=== PATIENT | male | born 1990 | race Caucasian/White ===

== ENCOUNTER 2017-12-21 16:00 | Outpatient (RCR) | payer OTHER, SELFPAY | END 2017-12-31 10:48 | disposition home or self-care (01) | LOC: PT 16:00 | PROVIDERS: Visit Provider Nurse Practitioner Family | DX: M54.5 Low back pain (principal) | CPT/HCPCS: 97012; 97033; 97035; 97110; 97140; 97163; 97164 ==

== ENCOUNTER 2020-02-17 11:31 | Emergency (ER) | payer BC, SELFPAY ==
[2020-02-17 11:41] VITALS: BP 130/94; PULSE 104; RESP 18; TEMP 36.7; O2SAT 97; BMI 23.7
--- NOTE | 2020-02-17 11:51 | HMH.EDUTC ---
[facility] [place] Disposition Clinical Impression: Acute bronchitis Qualifiers: Bronchitis organism: unspecified organism Qualified Code(s): J20.9 - Acute bronchitis, unspecified Disposition: Home, Self-Care Condition on Discharge: Good Instructions: DI for Acute Bronchitis, Preventing the Spread of Coronavirus Discharge Instructions Additional Instructions: Drink plenty of fluids. Take tylenol or ibuprofen for pain or fever. Take the medications as directed. Follow up with your regular doctor. GO TO THE ER FOR ANY WORSENING SYMPTOMS Prescriptions: Brompheniramine/Pseudoephed/Dm [Bromfed Dm Cough Syrup] 5 ml PO Q6HP PRN #240 syrup PRN Reason: Cough Transmission Status: Received by [email or web address] predniSONE [Prednisone 20mg Tab] 20 mg PO BID 4 Days #8 tab Transmission Status: Received by [email or web address] Azithromycin [Z-Terry 250mg Tab*] 250 mg PO UD DOSE PK #6 tab Transmission Status: Received by [email or web address] Referrals: Bev Love [Primary Care Provider] - Forms: Work/School Release Time of Disposition: 12:23 Medical Decision Making - Medical Records Medical records reviewed: No: I reviewed the patient's medical records. - John Inquiry Pt receiving controlled substance: No Vital Signs: 02/17/20 11:41 02/17/20 12:40 Temperature 98.0 F 98.0 F Temperature Source Oral Oral Pulse Rate 104 H Pulse Rate [Radial] 104 H Respiratory Rate 18 18 Blood Pressure 130/94 H Blood Pressure [Right Arm] 130/94 H Blood Pressure Mean [Right Arm] 106 Blood Pressure Source Automatic Cuff Blood Pressure Source [Right Arm] Automatic Cuff Blood Pressure Position Sitting Blood Pressure Position [Right Arm] Sitting 02 Sat by Pulse Oximetry 97 Oxygen Delivery Method Room Air Room Air Orders (Tests/Meds): ORDERS Category Date Time Status Covid-19 Nasal PCR Sendout [facility] Stat Lab 02/17/20 12:00 Received [facility] [place] HPI - General Stated complaint: coughing Time Seen by Provider: 02/17/20 11:51 Mode of Arrival: Ambulatory Source of Information: Patient Limitations: No Limitations Description of Symptoms (Recalled from Triage Doc. by RN): Complaint of a cought for 2-3 weeks with chest and back pain. States it gets better with rest. HEENT Symptoms (Recalled from RN notes): Yes Resp Symptoms (Recalled from RN notes): Yes Skin Symptoms (Recalled from RN notes): No MS Symptoms (Recalled from RN notes): No Functional Status (Recalled from RN notes): wnl - History of Present Illness Provider Complaint: He c/o cough and congestion for the past couple of weeks. His work wants him to be tested for covid. He denies any fever/chills. - Related Data Previous Rx's Medication Instructions Recorded Naproxen [Naproxen 500mg tab] 500 mg PO BID PRN #24 tab 10/08/17 Azithromycin [Z-Terry 250mg Tab*] 250 mg PO UD DOSE PK #6 tab 02/17/20 Brompheniramine/Pseudoephed/Dm 5 ml PO Q6HP PRN #240 syrup 02/17/20 [Bromfed Dm Cough Syrup] predniSONE [Prednisone 20mg 20 mg PO BID 4 Days #8 tab 02/17/20 Tab] Allergies Allergy/AdvReac Type Severity Reaction Status Date / Time No Known Allergies Allergy Verified 10/08/17 11:03 - Worker's Comp Is this a Worker's Comp case?: No [facility] History - Hepatitis A Screen Drug use history?: No High risk sexual behaviors?: No History of sexually transmitted infection?: No Currently employed?: No Childcare worker?: No Do you have indoor plumbing?: Yes Do you have electricity?: Yes Attestation statement:: This patient has been screened for Hepatitis A risk factors. 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
--- NOTE | 2020-02-17 11:54 | XR_ITS ---
PROCEDURE: XR CHEST 2V CLINICAL HISTORY: cough COMPARISON: No exams were available for comparison FINDINGS: The cardiomediastinal silhouette and pulmonary vascularity are within normal limits. The lungs are clear without infiltrates, suspicious nodules, or pleural effusions. No acute bony abnormalities. IMPRESSION: No acute findings. Dictated by: Baldemar Ortiz MD 02/17/2020 15:42 Baldemar Ortiz MD in OV 02/17/2020 15:42
[2020-02-17 12:40] VITALS: BP 130/94; PULSE 104; RESP 18; TEMP 36.7; O2SAT 97
[2020-02-18 18:10] LABS: Covid-19 Nasal PCR Sendout Lex NOT DETECTED
== END 2020-02-17 12:42 | disposition home or self-care (01) ==
PROVIDERS: Emergency Provider Nurse Practitioner Family; PCP Nurse Practitioner Family
DX: J20.9 Acute bronchitis, unspecified (principal); Z20.828 Contact with and (suspected) exposure to other viral communicable diseases; Z87.891 Personal history of nicotine dependence
CPT/HCPCS: 71046; 99202; U0004

== ENCOUNTER 2020-10-29 10:23 | Emergency (ER) | payer BC, SELFPAY ==
[2020-10-29 10:29] VITALS: BP 139/86; PULSE 83; RESP 14; TEMP 36.6; O2SAT 98; BMI 25.0
--- NOTE | 2020-10-29 10:50 | HMH.EDUTC ---
[facility] [place] Impression: Headache Qualifiers: Headache type: unspecified Headache chronicity pattern: unspecified pattern Intractability: not intractable Qualified Code(s): R51.9 - Headache, unspecified Disposition: Home, Self-Care Condition on Discharge: Good Instructions: Migraine -- Adult, DI for Migraine Additional Instructions: Go home and lay down and try to avoid any migraine triggers If you continue to have Migraines follow up with your Family Doctor for discussion of migraine medications Return if needed Straight to ER if any life threatening symptoms Referrals: Provider,Referral, MD [Primary Care Provider] - As needed Forms: Work/School Release Time of Disposition: 11:19 Medical Decision Making - John Inquiry Pt receiving controlled substance: No John was queried for this patient: No Vital Signs: 10/29/20 10:29 10/29/20 11:21 Temperature 97.9 F 98 F Temperature Source Oral Pulse Rate 80 Pulse Rate [Right] 83 Respiratory Rate 14 14 Blood Pressure 130/82 Blood Pressure [Right Arm] 139/86 Blood Pressure Mean [Right Arm] 103 Blood Pressure Source [Right Arm] Automatic Cuff Blood Pressure Position [Right Arm] Sitting 02 Sat by Pulse Oximetry 98 Oxygen Delivery Method Room Air Orders (Tests/Meds): ED MEDICATIONS Discontinued Medications Generic Name Dose Route Start Last Admin Trade Name Freq PRN Reason Stop Dose Admin Ubrogepant 50 mg 10/29/20 10:55 10/29/20 10:58 Ubrogepant 50mg Tablet PO 10/29/20 10:56 50 mg ONCE ONE Administration Medical Decision Narrative: Patient reports that he took 2 excedrin migraine this morning around 6am Discussed medication with pharmacy and due to amount of asprin in excedrin did not recommend Torodol injection and pharmacy recommended 50mg Ubrelvy PO discussed with patient and patient agreed Patient state that medication is helping and now headache almost gone Discussed injection of steriods to help prevent recurrence and patient declined [facility] [place] - General Stated complaint: headache for 4 days Time Seen by Provider: 10/29/20 10:35 Mode of Arrival: Ambulatory Source of Information: Patient Limitations: No Limitations Description of Symptoms (Recalled from Triage Doc. by RN): pt c/o a migraine ongoing for four days. pt states he has a hx of migraines. he has had some n/v. when it came on he saw black spots which is normal for his migraines. pain is 5/10 but gets up to a seven. HEENT Symptoms (Recalled from RN notes): Yes (migraine) Resp Symptoms (Recalled from RN notes): No Skin Symptoms (Recalled from RN notes): No MS Symptoms (Recalled from RN notes): No Functional Status (Recalled from RN notes): na - History of Present Illness Provider Complaint: Patient states that he has a history of migraine headaches State that he started having Migraine about 4 days ago and has tried taking excedrin migraine which will knock the pain down but not get rid of it and then it comes back States that this migraine is like others he has had in the past States that he tried to go to work today but the migraine returned so he came in to get treated State that took 2 excedrin migraine around 6am this morning - Related Data Previous Rx's Medication Instructions Recorded Naproxen [Naproxen 500mg tab] 500 mg PO BID PRN #24 tab 10/08/17 Azithromycin [Z-Terry 250mg Tab*] 250 mg PO UD DOSE PK #6 tab 02/17/20 Brompheniramine/Pseudoephed/Dm 5 ml PO Q6HP PRN #240 syrup 02/17/20 [Bromfed Dm Cough Syrup] predniSONE [Prednisone 20mg 20 mg PO BID 4 Days #8 tab 02/17/20 Tab] Allergies Allergy/AdvReac Type Severity Reaction Status Date / Time No Known Allergies Allergy Verified 10/29/20 10:29 - Worker's Comp Is this a Worker's Comp case?: No [facility] History - Hepatitis A Screen Drug use history?: No High risk sexual behaviors?: No History of sexually transmitted infection?: No Currently employed?: No Childcare
[2020-10-29 11:21] VITALS: BP 130/82; PULSE 80; RESP 14; TEMP 36.6
== END 2020-10-29 11:24 | disposition home or self-care (01) ==
PROVIDERS: Emergency Provider Nurse Practitioner
DX: G43.109 Migraine with aura, not intractable, without status migrainosus (principal); F17.210 Nicotine dependence, cigarettes, uncomplicated
CPT/HCPCS: 99202; G0463

== ENCOUNTER 2020-10-30 13:58 | Emergency (ER) | payer BC, SELFPAY ==
[2020-10-30 14:00] VITALS: BP 147/87; PULSE 78; RESP 19; TEMP 37; O2SAT 98; BMI 25.0
--- NOTE | 2020-10-30 14:43 | HMH.EDUTC ---
[facility] [place] Disposition Clinical Impression: Headache Qualifiers: Headache type: unspecified Headache chronicity pattern: unspecified pattern Intractability: not intractable Qualified Code(s): R51.9 - Headache, unspecified Disposition: Home, Self-Care Condition on Discharge: Good Instructions: Migraine -- Adult, DI for Migraine Additional Instructions: Follow up with your Family Doctor for evaluation due to Migraines to discuss further treatment Straight to ER for worsening of Migraine or changes in vision or worse headache of your life Call and make Eye exam appointment Return if needed Referrals: Bev Love [Primary Care Provider] - As needed Forms: Work/School Release Time of Disposition: 15:23 Medical Decision Making - John Inquiry Pt receiving controlled substance: No John was queried for this patient: No Vital Signs: 10/30/20 14:00 10/30/20 15:05 Temperature 98.6 F 98.6 F Temperature Source Oral Pulse Rate 78 Pulse Rate [Left Brachial] 78 Respiratory Rate 19 19 Blood Pressure 147/87 H Blood Pressure [Left Arm] 147/87 H Blood Pressure Mean [Left Arm] 107 Blood Pressure Source [Left Arm] Automatic Cuff Blood Pressure Position [Left Arm] Sitting 02 Sat by Pulse Oximetry 98 Oxygen Delivery Method Room Air Orders (Tests/Meds): ED MEDICATIONS Discontinued Medications Generic Name Dose Route Start Last Admin Trade Name Freq PRN Reason Stop Dose Admin Ketorolac Tromethamine 60 mg 10/30/20 14:55 10/30/20 15:00 Ketorolac 60mg/2ml Vial IM 10/30/20 14:56 60 mg ONCE ONE Administration Methylprednisolone Sodium Succinate 125 mg 10/30/20 14:55 10/30/20 15:00 Methylprednisolone Sod Succ 125mg Vial IM 10/30/20 14:56 125 mg ONCE ONE Administration Medical Decision Narrative: Discussed with patient and recommended transfer to the ED for further work up and evaluation and Head CT for further evaluation and R/O other possible migraine causes and patient declined State that he just wants treatment and will follow up with PCP tomorrow if headache returns Also discussed with patient that he needed to have eye exam since he has not had one in many years that this can lead to headache Patient is driving and medications discussed with pharmacy and agree will given injection of Torodol and SoluMedrol and have patient follow up immediately in ED or with PCP if headache returns Patient reports that he has not taken anything since he received medication in [facility] yesterday Patient states that medication helped and headache now much better and almost gone recommended follow up with PCP tomorrow for further evaluation and examination [facility] [place] HPI - General Stated complaint: migraine Time Seen by Provider: 10/30/20 14:43 Mode of Arrival: Ambulatory Source of Information: Patient Limitations: No Limitations Description of Symptoms (Recalled from Triage Doc. by RN): PATIENT C/O MIGRAINE SINCE 1100 TODAY. HE WAS SEEN IN [facility] YESTERDAY FOR A MIGRAINE AND WAS BETTER, BUT IT RETURNED TODAY HEENT Symptoms (Recalled from RN notes): Yes Resp Symptoms (Recalled from RN notes): No Skin Symptoms (Recalled from RN notes): No MS Symptoms (Recalled from RN notes): No Functional Status (Recalled from RN notes): WNL - History of Present Illness Provider Complaint: Patient states that he has a history of migraine headaches. Patient states that he has been having migraine on and off for almost a week States that he was seen in [facility] yesterday and got some medication and it knocked the migraine and he was fine all yesterday evening State that this morning it was a little achy but around noon felt the migraine coming back on the left side of his head State that it is not the worse migraine of his life but came back in to get treated again before it got too bad and made him sick - Related Data Allergies Allergy/AdvReac Type Severity Reaction Status Date / Time No Known Allergies Allergy Verified 10/29/20 10:29
[2020-10-30 15:05] VITALS: BP 147/87; PULSE 78; RESP 19; TEMP 37; O2SAT 98
== END 2020-10-30 15:31 | disposition home or self-care (01) ==
PROVIDERS: Emergency Provider Nurse Practitioner; PCP Nurse Practitioner Family
DX: G43.909 Migraine, unspecified, not intractable, without status migrainosus (principal)
CPT/HCPCS: 96372; 99202; G0463

== ENCOUNTER 2020-12-08 20:24 | Emergency (ER) | payer BC, SELFPAY ==
[2020-12-08 20:32] VITALS: BP 151/109; PULSE 98; RESP 18; TEMP 37.3; O2SAT 100; BMI 23.1
--- NOTE | 2020-12-08 21:10 | HMH.EDDENT ---
ED Disposition Clinical Impression: Infected dental caries Disposition: Home, Self-Care Condition on Discharge: Good Instructions: DI for Dental Pain Additional Instructions: see pcp and dentist for follo wup Prescriptions: clindamycin HCL [Clindamycin HCl] 300 mg PO TID #30 cap Prescription Printed Referrals: Riana Cook APRN [Primary Care Provider] - - Critical Care Critical Care Time: No Attestation: On 12/08/20, the high probability of a clinically significant, sudden or life threatening deterioration of the following system(s) required my full and direct attention, intervention and personal management. The time I documented below is in addition to time spent performing reported procedures but includes the following listed in this critical care notation. Medical Decision Making - Medical Records Medical records reviewed: Yes: I reviewed the patient's medical records. - John Inquiry Pt receiving controlled substance: No Vital Signs: 12/08/20 20:32 Temperature 99.1 F Temperature Source Oral Pulse Rate [Right Brachial] 98 H Respiratory Rate 18 Blood Pressure [Right Arm] 151/109 H Blood Pressure Mean [Right Arm] 123 Blood Pressure Source [Right Arm] Automatic Cuff Blood Pressure Position [Right Arm] Sitting 02 Sat by Pulse Oximetry 100 Oxygen Delivery Method Room Air Orders (Tests/Meds): ED MEDICATIONS Generic Name Dose Route Start Last Admin Trade Name Freq PRN Reason Stop Dose Admin Ceftriaxone Sodium 1 gm/ 50 mls @ 100 mls/hr 12/08/20 20:45 12/08/20 20:44 Sodium Chloride IV 12/22/20 20:44 100 mls/hr Q24H CYNDI Administration Protocol Sodium Chloride 8 ml 12/08/20 20:41 Sodium Chloride 0.9% 10ml Vial IV 01/07/21 20:40 NEEDED PRN dilute pepcid Discontinued Medications Generic Name Dose Route Start Last Admin Trade Name Freq PRN Reason Stop Dose Admin Famotidine 20 mg 12/08/20 20:41 Famotidine 20mg/2ml Vial IV 12/08/20 20:42 ONCE ONE Ketorolac Tromethamine 30 mg 12/08/20 20:43 12/08/20 20:44 Ketorolac 30mg/Ml Vial IV 12/08/20 20:44 30 mg ONCE ONE Administration Methylprednisolone Sodium Succinate 125 mg 12/08/20 20:41 12/08/20 20:43 Methylprednisolone Sod Succ 125mg Vial IV 12/08/20 20:42 125 mg ONCE ONE Administration ORDERS Category Date Time Status Basic Metabolic Panel Stat Lab 12/08/20 20:41 Ordered Complete Blood Count Auto Diff Stat Lab 12/08/20 20:41 Ordered Medical Decision Narrative: f/u with dentist and pcp Dental HPI - General Chief complaint: Dental/Oral Stated complaint: dental pain Time Seen by Provider: 12/08/20 20:40 Mode of Arrival: Family Vehicle Source of Information: Patient, Medical Record Limitations: No Limitations Description of Symptoms (Recalled from ER Triage Doc. by RN): PT WITH PRESSURE UNDER RIGHT EYE THAT BECAME MORE SWOLLEN IN THE LAST HOUR. PT STATES HE HAS A TOOTH ABSCESS ON LEFT UPPER JAW. - History of Present Illness HPI Narrative: pt with poor dental health and swollen lt face - pt with no fever - MD Complaint: tooth pain Onset (ago): hour(s) Severity: moderate Context: history of dental caries, poor dental care Associated symptoms: gum swelling Treatment prior to arrival: none - Related Data Previous Rx's Medication Instructions Recorded clindamycin HCL [Clindamycin HCl] 300 mg PO TID #30 cap 12/08/20 Allergies Allergy/AdvReac Type Severity Reaction Status Date / Time No Known Allergies Allergy Verified 10/29/20 10:29 [facility] History - Hepatitis A Screen Drug use history?: No High risk sexual behaviors?: No History of sexually transmitted infection?: No Currently employed?: No Childcare worker?: No Do you have indoor plumbing?: Yes Do you have electricity?: Yes Attestation statement:: This patient has been screened for Hepatitis A risk factors. I have reviewed the patient's past medical history: Yes Medi
[2020-12-08 21:20] LABS: Basophils # 0.1 K/mm3 (0-0.2); Basophils % 0.5 % (0.1-2.0); Eosinophils # 0.2 K/mm3 (0.0-0.4); Eosinophils % 1.1 % (0.1-12.0); Hematocrit 42.3 % (42.0-52.0); Hemoglobin 14.7 g/dL (14.1-18.0); Lymphocytes # 1.8 K/mm3 (0.7-4.5); Lymphocytes % 10.9 % (10-50); Mean Corpuscular HGB Conc 34.8 g/dL (31.8-35.4); Mean Corpuscular Hemoglobin 30.4 pg (27.0-31.2); Mean Corpuscular Volume 87.3 fl (80-94); Mean Platelet Volume 7.9 fl (7.4-10.4); Monocytes # 0.8 K/mm3 (0.1-1.0); Monocytes % 4.8 % (1.7-9.3); Neutrophils # 13.7 K/mm3 (1.8-7.8); Neutrophils % 82.7 % (37.0-80.0); Platelet Count 261 K/mm3 (142-424); Red Blood Count 4.84 M/mm3 (4.60-6.20); Red Cell Distribution Width 13.1 % (11.5-17.5); White Blood Count 16.6 K/mm3 (4.8-10.8)
[2020-12-08 21:21] LABS: MANUAL DIFFERENTIAL MANUAL DIFFERENTIAL (MANUAL DIFF)
[2020-12-08 21:28] LABS: Anion Gap 10.8 mEq/L (5-15); Blood Urea Nitrogen 8 mg/dl (9-20); Calcium 9.1 mg/dl (8.4-10.2); Carbon Dioxide 28 mmol/L (22.0-30.0); Chloride 102 mmol/L (98-107); Creatinine Clearance Estimated 111 mL/min (50-200); Estimated Glomerular Filt Rate 78 ml/min (>60); GFR (African American) 94 ML/MIN (>60); Glucose 85 mg/dl (74-100); Potassium 3.8 mmoL/L (3.5-5.1); Sodium 137 mmol/L (136-145)
[2020-12-08 21:41] LABS: Eosinophils % 1 % (0-3); Lymphocytes % 12 % (10-50); Monocytes % 4 % (2-9); Neutrophils % 83 % (42-76); Platelet Estimate Normal; RBC Morphology Normal; Total Cells Counted 100
[2020-12-08 21:53] VITALS: BP 110/61; PULSE 88; RESP 18; TEMP 36.8; O2SAT 99
== END 2020-12-08 22:00 | disposition home or self-care (01) ==
PROVIDERS: Emergency Provider Emergency Medicine; PCP Nurse Practitioner
DX: K04.7 Periapical abscess without sinus (principal); K02.9 Dental caries, unspecified; F17.210 Nicotine dependence, cigarettes, uncomplicated
CPT/HCPCS: 80048; 85007; 85025; 96374; 96375; 99282

== ENCOUNTER 2021-02-04 12:23 | Emergency (ER) | payer BC, SELFPAY ==
[2021-02-04 14:25] VITALS: BP 122/79; PULSE 64; RESP 18; TEMP 36.8; O2SAT 100; BMI 23.1
--- NOTE | 2021-02-04 15:03 | HMH.EDUTC ---
[facility] [place] Clinical Impression: Viral syndrome, Encounter for laboratory testing for COVID-19 virus Disposition: Home, Self-Care Condition on Discharge: Good Instructions: DI for COVID-19 (Suspected or Confirmed ), Preventing the Spread of Coronavirus Discharge Instructions, DI for Viral Syndrome Additional Instructions: *Monitor Temp, Over the counter Motrin or Tylenol as directed/as needed Tylenol every 4 hours and Motrin every 6 hours (as long as your family doctor has told you that you can take it) for fever or pain. and straight to ER if unable to lower temp less than 101.0 after medication given *Warm salt water gargles may help to soothe the throat *Throat Lozenges *Warm fluids like tea with honey may help to soothe the throat *Sleep elevated *Humidifier/Vaporizer Follow up IMMEDIATELY for new or worsening symptoms or no Noticeable improvement over the next 48-72 hours. 911 for difficulty breathing or swallowing You were tested for today for COVID19 your test result should be back in the next 24-48 hours, you was given handout on how to check for your results on [facility] if you have issues or no internet access you may call the [facility] You was given a handout with instructions for Self Quarantine and Self isolation for while you wait on test results and what to do if they are positive If you are positive the Health Dept will be contacting you also Make sure to take your Vitamins Vit. C Vit D and Zinc if you can take them Referrals: Riana Cook APRN [Primary Care Provider] - As needed Forms: Work/School Release Time of Disposition: 15:07 Medical Decision Making - John Inquiry Pt receiving controlled substance: No John was queried for this patient: No Vital Signs: 02/04/21 14:25 Temperature 98.3 F Temperature Source Oral Pulse Rate [Right Brachial] 64 Respiratory Rate 18 Blood Pressure [Right Arm] 122/79 Blood Pressure Mean [Right Arm] 93 Blood Pressure Source [Right Arm] Automatic Cuff Blood Pressure Position [Right Arm] Sitting 02 Sat by Pulse Oximetry 100 Oxygen Delivery Method Room Air Orders (Tests/Meds): ORDERS Category Date Time Status Covid-19 Nasal PCR ([facility]) Routine Lab 02/04/21 14:54 Ordered [facility] [place] - General Stated complaint: covid symptoms Time Seen by Provider: 02/04/21 15:03 Mode of Arrival: Ambulatory Source of Information: Patient Limitations: No Limitations Description of Symptoms (Recalled from Triage Doc. by RN): PATIENT C/O RUNNY NOSE, RIGHT-SIDE RIB PAIN, WEAKNESS, AND CHILLS. RECENTLY EXPOSED TO COVID HEENT Symptoms (Recalled from RN notes): Yes Resp Symptoms (Recalled from RN notes): Yes Skin Symptoms (Recalled from RN notes): No MS Symptoms (Recalled from RN notes): No Functional Status (Recalled from RN notes): WNL - History of Present Illness Provider Complaint: Patient states that several family members and several coworkers have had COVID states that several days ago he started with nasal congestion, cough, pain in his right ribs when he would cough, and body aches and chills States now symptoms are better and almost gone but started having similar symptoms and he wanted to get tested for COVID due to she is - Related Data Previous Rx's Medication Instructions Recorded clindamycin HCL [Clindamycin HCl] 300 mg PO TID #30 cap 12/08/20 Allergies Allergy/AdvReac Type Severity Reaction Status Date / Time No Known Allergies Allergy Verified 10/29/20 10:29 - Worker's Comp Is this a Worker's Comp case?: No [facility] History - Hepatitis A Screen Drug use history?: No High risk sexual behaviors?: No History of sexually transmitted infection?: No Currently employed?: No Childcare worker?: No Do you have indoor plumbing?: Yes Do you have electricity?: Yes Attestation statement:: This patient has been screened for Hepatitis A risk factors. I have reviewed the patient's past medical history: Yes Medical H
[2021-02-04 15:10] VITALS: BP 122/79; PULSE 64; RESP 18; TEMP 36.8; O2SAT 100
== END 2021-02-04 15:19 | disposition home or self-care (01) ==
PROVIDERS: Emergency Provider Nurse Practitioner; PCP Nurse Practitioner
DX: U07.1 COVID-19 (principal); B34.9 Viral infection, unspecified; F17.210 Nicotine dependence, cigarettes, uncomplicated
CPT/HCPCS: 99202; C9803; G0463; U0003; U0005

== ENCOUNTER 2022-06-28 10:55 | Emergency (ER) | payer OTHER, SELFPAY ==
[2022-06-28 11:15] VITALS: BP 118/89; PULSE 110; RESP 18; TEMP 37.6; O2SAT 98; BMI 23.1
[2022-06-28 11:30] LABS: UTC Influenza A Antigen Negative (Negative); UTC Influenza B Antigen Negative (Negative)
--- NOTE | 2022-06-28 11:37 | EXP.UTC ---
Discharge Plan Disposition Patient Disposition: Home, Self-Care Condition: Good Referrals Follow up/Referrals: Provider,Referral, MD [Primary Care Provider] - See instructions Activity Restrictions/Add. Instructions Additional Instructions/Restrictions: call later today for covid results No sign of a bacterial infection. Likely viral. Viruses can take 7-14 days to run their course. Nasal saline and bulb syringe or nose Kia to remove nasal drainage to help with nasal congestion. Hard to eat, drink, sleep with nasal congestion so important to keep this cleaned out. Monitor temp. Tylenol or Motrin as needed for pain or fever Encourage fluids, water, Gatorade, Powerade, Pedialyte if infant/toddler/child Warm salt water gargles Warm fluids Sore throat lozenges Sleep elevated Humidifier/vaporizer Follow-up immediately for new or worsening symptoms or no noticeable improvement over the next 48-72 hours. Clinical Impressions Clinical Impression: Upper respiratory infection Instructions Patient Instructions: DI for Viral Upper Respiratory Infection -- Adult [facility]charge [facility] [place] HPI General Stated complaint: chills, body aches, fever Mode of Arrival: Ambulatory Source of Information: Patient Limitations: No Limitations Time Seen by Provider: 06/28/22 11:41 Description of Symptoms (Recalled from Triage Doc. by RN): PATIENT C/O BODY ACHES, FEVER, AND COUGH X 4 DAYS HEENT Symptoms (Recalled from RN notes): No Resp Symptoms (Recalled from RN notes): Yes Skin Symptoms (Recalled from RN notes): No MS Symptoms (Recalled from RN notes): No Functional Status (Recalled from RN notes): WNL History of Present Illness Provider Complaint: 32 yr old male presents for fever, body aches and cough for 4 days Related Data Allergies Allergy/AdvReac Type Severity Reaction Status Date / Time No Known Allergies Allergy Verified 10/29/20 10:29 Worker's Comp Is this a Worker's Comp case?: No [facility] Disclaimer: The information contained in this section may have been updated after the patient was seen, as this information can be updated by other users. 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) Smoking Status: Current every day smoker tobacco type: cigarettes packs per day: 14 and smokeless tobacco second hand exposure: Yes alcohol intake: never current occupational status: other Travel in the last 8 weeks: None ROS Obtained: Yes All systems reviewed & no additional complaints except as documented Constitutional Constitutional: Reports system reviewed and no additional complaints, except as documented, Reports as per HPI, Reports body ache, Reports chills and Reports fever(s) Eyes Eyes: Reports system reviewed and no additional complaints, except as documented ENT Ears, Nose, Mouth, and Throat: Reports system reviewed and no additional complaints, except as documented Cardiovascular Cardiovascular: Reports system reviewed and no additional complaints, except as documented Respiratory Respiratory: Reports system reviewed and no additional complaints, except as documented and Reports cough Gastrointestinal Gastrointestingal: Reports system reviewed and no additional complaints, except as documented Musculoskeletal Musculoskeletal: Reports system reviewed and no additional complaints, except as documented Integumentary/Breasts Skin/Breast: Reports system reviewed and no additional complaints, except as documented Neurologic Neurologic: Reports system reviewed and no additional complaints, except as documented Allergic/Immunologic Allergic/Immunologic: Reports system reviewed and no additional complaints, except as documented Physical Exam General General appearance: alert and in no apparent distress Head Head exam: atraumatic, normocephalic and nor
[2022-06-28 11:50] VITALS: BP 118/89; PULSE 110; RESP 24; TEMP 37.1; O2SAT 100
== END 2022-06-28 12:00 | disposition home or self-care (01) ==
PROVIDERS: Emergency Provider Nurse Practitioner Family
DX: U07.1 COVID-19 (principal); R50.9 Fever, unspecified; R52 Pain, unspecified; R05.9 Cough, unspecified
CPT/HCPCS: 87804; 99212; C9803; G0463; U0003; U0005

== ENCOUNTER 2023-01-12 10:17 | Emergency (ER) | payer OTHER, SELFPAY ==
[2023-01-12 10:17] VITALS: BP 127/100; PULSE 85; RESP 18; TEMP 37.1; O2SAT 97; BMI 23.1
--- NOTE | 2023-01-12 10:31 | EXP.UTC ---
Discharge Plan Disposition Patient Disposition: Home, Self-Care Condition: Good Prescriptions Prescriptions: New ondansetron 4 mg Tablet,Disintegrating 4 mg PO Q8H PRN (Reason: Nausea) Qty: 12 0RF Referrals Follow up/Referrals: Provider,Referral, MD [Primary Care Provider] - See instructions Activity Restrictions/Add. Instructions Additional Instructions/Restrictions: Drink plenty of fluids. Take tylenol or ibuprofen for pain or fever. Take the medications as directed. Follow up with your regular doctor. GO TO THE ER FOR ANY WORSENING SYMPTOMS Clinical Impressions Clinical Impression: Gastroenteritis Stand Alone Forms Stand Alone Forms: Work/School Release Instructions Patient Instructions: Viral Gastroenteritis, DI for Viral Gastroenteritis -- Adult, Ondansetron Discharge ED Provider: Fei Stevens [facility] General Stated complaint: vomiting Time Seen by Provider: 01/12/23 10:31 History of Present Illness Provider Complaint: He states that he has had n/v/d since around 0300 this am. He denies any abdominal pain. He denies any cough and congestion. Related Data Previous Rx's Medication Instructions Recorded ondansetron 4 mg disintegrating 4 mg PO Q8H PRN Nausea #12 tabs 01/12/23 tablet Allergies Allergy/AdvReac Type Severity Reaction Status Date / Time Penicillins Allergy Verified 01/12/23 10:37 [facility] Disclaimer: The information contained in this section may have been updated after the patient was seen, as this information can be updated by other users. 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) Smoking Status: Current every day smoker tobacco type: cigarettes packs per day: 14 and smokeless tobacco second hand exposure: Yes alcohol intake: never current occupational status: other Travel in the last 8 weeks: None ROS Obtained: Yes All systems reviewed & no additional complaints except as documented Constitutional Constitutional: Denies chills, Denies fever(s) and Reports poor appetite ENT Ears, Nose, Mouth, and Throat: Denies dizziness and Denies sore throat Cardiovascular Cardiovascular: Denies dyspnea Respiratory Respiratory: Denies chest congestion, Denies cough and Denies dyspnea Gastrointestinal Gastrointestingal: Reports as per HPI; Denies abdominal pain Musculoskeletal Musculoskeletal: Denies arthralgias Integumentary/Breasts Skin/Breast: Denies rash Neurologic Neurologic: Denies dizziness Physical Exam General General appearance: alert and in no apparent distress Head Head exam: atraumatic and normocephalic Eye Eye exam: Present normal appearance, PERRL and EOMI ENT ENT exam: Present normal exam, normal oropharynx, mucous membranes moist, TM's normal bilaterally and normal external ear exam Neck Neck exam: Present normal inspection, full ROM and trachea midline; Absent tenderness, meningismus or lymphadenopathy Chest Chest inspection: Present normal inspection and symmetric chest wall rise; Absent tenderness, rash or abscess Respiratory Respiratory exam: Present normal lung sounds bilaterally; Absent respiratory distress, wheezes or stridor Cardiovascular Cardiovascular exam: Present regular rate and normal rhythm; Absent irregular rhythm, systolic murmur, diastolic murmur or JVD Abdominal Exam Abdominal exam: Present soft and hyperactive bowel sounds; Absent distention, tenderness, guarding, rebound, rigidity, psoas sign, obturator sign, heel tap sign, Gonzalez's sign, Rovsing's sign or tenderness at McBurney's Point Extremities Exam Extremities exam: Present normal inspection and full ROM; Absent tenderness Back Exam Back exam: Present normal inspection and full ROM; Absent tenderness, CVA tenderness (R) or CVA tenderness (L) Neurological Exam Neurological exam: Present alert, oriented X3 and
[2023-01-12 10:51] VITALS: BP 127/100; PULSE 85; RESP 18; TEMP 37.1; O2SAT 97
== END 2023-01-12 10:51 | disposition home or self-care (01) ==
PROVIDERS: Emergency Provider Nurse Practitioner Family
DX: K52.9 Noninfective gastroenteritis and colitis, unspecified (principal); R11.2 Nausea with vomiting, unspecified; F17.210 Nicotine dependence, cigarettes, uncomplicated
CPT/HCPCS: 96372; 99212; 99214; G0463

== ENCOUNTER 2023-10-14 09:58 | Emergency (ER) | payer OTHER, SELFPAY ==
[2023-10-14 09:58] VITALS: BP 140/99; PULSE 97; RESP 18; TEMP 36.8; O2SAT 95; BMI 22.4
--- NOTE | 2023-10-14 10:20 | ED_ITS ---
Discharge Plan Disposition Patient Disposition: Home, Self-Care Condition: Good Prescriptions Prescriptions: New ondansetron 4 mg Tablet,Disintegrating 4 mg PO Q8H PRN (Reason: Nausea) Qty: 12 0RF Referrals Follow up/Referrals: Provider,Referral, MD [Primary Care Provider] - See instructions Activity Restrictions/Add. Instructions Additional Instructions/Restrictions: Drink plenty of fluids. Take tylenol or ibuprofen for pain or fever. Take the medications as directed. Follow up with your regular doctor. GO TO THE ER FOR ANY WORSENING SYMPTOMS Clinical Impressions Clinical Impression: Gastroenteritis Stand Alone Forms Stand Alone Forms: Work/School Release Instructions Patient Instructions: Viral Gastroenteritis, DI for Viral Gastroenteritis -- Adult, Ondansetron Discharge ED Provider: Fei Stevens [facility] [place] General Stated complaint: vomitting, diarrhea Time Seen by Provider: 10/14/23 10:20 History of Present Illness Provider Complaint: He states that he has had nausea/vomiting/diarrhea since yesterday. He had to leave work because of his symptoms. He denies abdominal pain. Related Data Previous Rx's Medication Instructions Recorded ondansetron 4 mg disintegrating 4 mg PO Q8H PRN Nausea #12 tabs 10/14/23 tablet Allergies Allergy/AdvReac Type Severity Reaction Status Date / Time Penicillins Allergy Verified 10/14/23 11:00 [facility] Disclaimer: The information contained in this section may have been updated after the patient was seen, as this information can be updated by other users. 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 Social History Smoking Status: Current every day smoker tobacco type: cigarettes packs per day: 14 and smokeless tobacco second hand exposure: Yes alcohol intake: never current occupational status: other Travel in the last 8 weeks: None ROS Obtained: Yes All systems reviewed & no additional complaints except as documented Constitutional Constitutional: Denies chills, Denies fever(s) and Reports poor appetite ENT Ears, Nose, Mouth, and Throat: Denies dizziness and Denies sore throat Cardiovascular Cardiovascular: Denies dyspnea Respiratory Respiratory: Denies chest congestion, Denies cough and Denies dyspnea Gastrointestinal Gastrointestingal: Reports as per HPI, cramping, diarrhea, nausea and vomiting; Denies abdominal pain Musculoskeletal Musculoskeletal: Denies arthralgias Integumentary/Breasts Skin/Breast: Denies rash Neurologic Neurologic: Denies dizziness Physical Exam General General appearance: alert and in no apparent distress Head Head exam: atraumatic and normocephalic Eye Eye exam: Present normal appearance, PERRL and EOMI ENT ENT exam: Present normal exam, normal oropharynx, mucous membranes moist, TM's normal bilaterally and normal external ear exam Neck Neck exam: Present normal inspection, full ROM and trachea midline; Absent tenderness, meningismus or lymphadenopathy Chest Chest inspection: Present normal inspection and symmetric chest wall rise; Absent tenderness, rash or abscess Respiratory Respiratory exam: Present normal lung sounds bilaterally; Absent respiratory distress, wheezes or stridor Cardiovascular Cardiovascular exam: Present regular rate and normal rhythm; Absent irregular rhythm, systolic murmur, diastolic murmur or JVD Abdominal Exam Abdominal exam: Present soft and hyperactive bowel sounds; Absent distention, tenderness, guarding, rebound, rigidity, psoas sign, obturator sign, heel tap sign, Gonzalez's sign, Rovsing's sign or tenderness at McBurney's Point Extremities Exam Extremities exam: Present normal inspection and full ROM; Absent tenderness Back Exam Back exam: Present normal inspection and full ROM; Absent tenderness, CVA tenderness (R) or CVA tenderness (L) Neurological Exam Neurological exam: Present alert, oriented X3 and CN II-XII intact Psychiatric Psychiatric exam: Present normal affect and normal mood Skin Skin exam: Present warm, dry, intact and normal color Lymphatic Lymphatic Findings: no adenopathy Medical Decision Making Medical Records Medical records reviewed: No I reviewed the patient's medical records. John Inquiry Pt receiving controlled substance: No
[2023-10-14 11:00] VITALS: BP 140/99; PULSE 97; RESP 18; TEMP 36.8; O2SAT 95
== END 2023-10-14 11:00 | disposition home or self-care (01) ==
PROVIDERS: Emergency Provider Nurse Practitioner Family
DX: K52.9 Noninfective gastroenteritis and colitis, unspecified (principal); R11.2 Nausea with vomiting, unspecified; F17.210 Nicotine dependence, cigarettes, uncomplicated; R63.0 Anorexia
CPT/HCPCS: 99212; 99214; G0463

== ENCOUNTER 2024-07-25 04:35 | Emergency (ER) | payer MEDICAID, SELFPAY ==
[2024-07-25] VITALS (7 sets, daily range): BP systolic 120–145; BP diastolic 86–105; PULSE 63–92; RESP 18–21; TEMP 36.8–36.9; O2SAT 93–99; BMI 22.1
--- NOTE | 2024-07-25 04:39 | HMH.EDGENADL ---
Discharge Plan Disposition Patient Disposition: Home, Self-Care Prescriptions Prescriptions: New clotrimazole 10 mg jia 10 mg mucous membrane QID 7 Days Qty: 28 0RF No Action ondansetron 4 mg Tablet,Disintegrating 4 mg PO Q8H PRN (Reason: Nausea) Qty: 12 0RF Referrals Follow up/Referrals: Provider,Referral, [Primary Care Provider] - See instructions Activity Restrictions/Add. Instructions Additional Instructions/Restrictions: I sent a prescription to [facility] pharmacy for antifungals for treatment of thrush. Please follow-up with your primary care provider. Please return to the emergency department if you develop any new or worsening symptoms or become concerned for your health. Clinical Impressions Clinical Impression: Muscle spasm, Candidiasis of mouth Print Language Print Language: Syriac Discharge ED Provider: Sourav Tyler General Adult HPI General Chief complaint: Alcohol Stated complaint: alchol withdraw Time Seen by Provider: 07/25/24 04:39 History of Present Illness HPI narrative: 34-year-old male with history of alcohol use disorder presents for muscle cramps. He reports that he was previously drinking up to 30 beers per day for the last several months. He quit cold turkey for days ago. He was seen at an outside hospital yesterday and got fluids and felt better. He denies any seizures, hallucinations or other severe symptoms. He did have a couple of days of nausea and vomiting but has been feeling much better. He presents here tonight because he started developing muscle cramps in his hands and his right calf. He is not sure why it is happening. He reports that he has been eating and drinking water at home much better than he used to when he was drinking alcohol. Denies any other symptoms or illness. Related Data Previous Rx's ?Medication ?Instructions ?Recorded ondansetron 4 mg disintegrating 4 mg PO Q8H PRN Nausea #12 tabs 10/14/23 tablet clotrimazole 10 mg jia 10 mg mucous membrane QID 7 days 07/25/24 #28 tabs Allergies Allergy/AdvReac Type Severity Reaction Status Date / Time Penicillins Allergy Verified 10/14/23 11:00 [facility] Disclaimer: The information contained in this section may have been updated after the patient was seen, as this information can be updated by other users. 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 Social History Smoking Status: Unknown if ever smoked second hand exposure: Yes alcohol intake: never current occupational status: other Travel in the last 8 weeks: None Other 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 Have you received the Flu Vaccine for this season: No Have you received the Pneumonia Vaccine: No ROS Obtained: Yes All systems reviewed & no additional complaints except as documented Physical Exam General General appearance: alert and in no apparent distress Head Head exam: atraumatic and normocephalic Eye Eye exam: Present normal appearance, PERRL and EOMI ENT ENT exam: Present normal oropharynx and normal external ear exam Neck Neck exam: Present normal inspection and full ROM Chest Chest inspection: Present normal inspection and symmetric chest wall rise; Absent tenderness Respiratory Respiratory exam: Present normal lung sounds bilaterally; Absent respiratory distress Cardiovascular Cardiovascular exam: Present regular rate and normal rhythm Abdominal Exam Abdominal exam: Present soft; Absent distention, tenderness or guarding Extremities Exam Extremities exam: Present normal inspection; Absent edema or joint swelling Back Exam Back exam: Present normal inspection; Absent tenderness Neurological Exam Neurological exam: Present alert and oriented X3; Absent motor sensory deficit Psychiatric Psychiatric exam: Present normal affect and normal mood Skin Skin exam: Present warm, dry and normal color Lymphatic Lymphatic Findings: no adenopathy Medical Decision Making Medical Records Medical records reviewed: Yes I reviewed the patient's medical records. Screening: Per USPSTF and CDC recommendations, given the prevalence of disease in our region, it is our hospital?s policy to screen for HIV and viral Hepatitis for all patients aged 18 and over and those with ongoing risk factors. John Inquiry Pt receiving controlled substance: No John was queried for this patient: No Vital Signs: 07/25/24 04:35 07/25/24 04:55 07/25/24 04:58 Temperature 98.5 F Temperature Source Oral Pulse Rate 73 Pulse Rate [Right Radial] 81 Respiratory Rate 18 19 Blood Pressure 128/94 H Blood Pressure [Right Arm] 145/105 H Blood Pressure Mean 105 Blood Pressure Mean [Right Arm] 118 Blood Pressure Source Blood Pressure Source [Right Arm] Automatic Cuff Blood Pressure Position Blood Pressure Position [Right Arm] Sitting 02 Sat by Pulse Oximetry 99 98 Oxygen Delivery Method Room Air 07/25/24 04:58 07/25/24 05:00 07/25/24 05:00 Temperature Temperature Source Pulse Rate 63 Pulse Rate [Right Radial] Respiratory Rate 19 19 Blood Pressure 120/87 Blood Pressure [Right Arm] Blood Pressure Mean 97 Blood Pressure Mean [Right Arm] Blood Pressure Source Blood Pressure Source [Right Arm] Blood Pressure Position Blood Pressure Position [Right Arm] 02 Sat by Pulse Oximetry 95 Oxygen Delivery Method 07/25/24 05:15 07/25/24 05:30 07/25/24 06:55 Temperature 98.2 F Temperature Source Oral Pulse Rate 92 H 88 Pulse Rate [Right Radial] Respiratory Rate 21 20 Blood Pressure 123/86 120/88 Blood Pressure [Right Arm] Blood Pressure Mean 94 Blood Pressure Mean [Right Arm] Blood Pressure Source Automatic Cuff Blood Pressure Source [Right Arm] Blood Pressure Position Sitting Blood Pressure Position [Right Arm] 02 Sat by Pulse Oximetry 93 L Oxygen Delivery Method Room Air Lab Data Lab results reviewed: Yes I reviewed the patient's lab results. Lab Results 07/25/24 04:53: WBC 10.0, RBC 3.93 L, Hgb 13.5 L, Hct 37.7 L, MCV 95.9 H, MCH 34.4 H, MCHC 35.8 H, RDW 11.9, Plt Count 156, MPV 11.5 H, Neut % (Auto) 68.9, Lymph % (Auto) 17.2, [place] % (Auto) 9.9 H, Eos % (Auto) 2.6, Baso % (Auto) 1.1, Neut # (Auto) 6.9, Lymph # (Auto) 1.7, [place] # (Auto) 1.0, Eos # (Auto) 0.3, Baso # (Auto) 0.1, PT 9.9 L, INR 0.87 L, Sodium 134 L, Potassium 3.8, Chloride 103, Carbon Dioxide 27, Anion Gap 7.8, BUN 6 L, Creatinine 0.80, Estimated Creat Clear 142, Estimated GFR 109, Est GFR ( Amer) 132, Glucose 109 H, Calcium 9.0, Phosphorus 3.7, Magnesium 1.7, Total Bilirubin 1.0, AST 188 H, ALT 193 H, Alkaline Phosphatase 65, Total Protein 6.5, Albumin 3.9, Globulin 2.6, Albumin/Globulin Ratio 1.5, TSH 2.47, Thyroxine (T4) 7.8, HCV Ab LAY w/Rflx PCR Qn Negative, HIV Ag/Ab Combo Qual Negative 07/25/24 04:53 07/25/24 04:53 Orders (Tests/Meds): ED MEDICATIONS Discontinued Medications Generic Name Dose Route Start Last Admin Trade Name Flores PRN Reason Stop Dose Admin Folic Acid 1 mg 07/25/24 04:48 07/25/24 05:00 Folic Acid 1mg Tablet PO 07/25/24 04:49 1 mg ONCE ONE Administration Multivitamins 10 ml/ Thiamine 1,015 mls @ 150 mls/hr 07/25/24 04:51 07/25/24 04:58 HCl 100 mg/ Magnesium Sulfate IV 07/25/24 11:36 150 mls/hr 2 gm/ Lactated Ringer's .[id number] CYNDI Administration Multivitamins 1 each 07/25/24 04:50 07/25/24 05:22 Multivitamin Tablet PO 07/25/24 04:51 Not Given 1700 ONE Thiamine HCl 100 mg 07/25/24 04:50 07/25/24 05:02 Thiamine 100mg Tablet PO 07/25/24 04:51 100 mg DAILY ONE Administration ORDERS Category Date Time Status Consult Credit Operations 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 W/ RFX Stat Lab 07/25/24 04:53 Completed Magnesium Stat Lab 07/25/24 04:53 Completed Phosphorous Stat Lab 07/25/24 04:53 Completed Prothrombin Time INR Routine Lab 07/25/24 04:53 Completed T4 (Thyroxine) Stat Lab 07/25/24 04:53 Completed TSH [Thyroid Stimulating Hormone] Stat Lab 07/25/24 04:53 Completed Medical Decision Narrative: 34-year-old male with history of alcohol use disorder presents 4 to 5 days after alcohol cessation, complaining of muscle cramps. Denies any hallucinations, significant nausea or vomiting, seizures etc. History was obtained via interactive discussion with patient. On arrival, patient is [afebrile, hemodynamically stable, satting appropriately, alert, oriented x4, GCS 15], moving all extremities spontaneously. Full physical exam performed and significant for no significant physical exam abnormalities. Differential includes but is not limited to muscle spasms, electrolyte derangement, refeeding syndrome, Wernicke syndrome. Patient was given rally pack for symptomatic management and correction of underlying abnormalities. Workup initiated including CBC CMP mag Phos TSH T4 INR. On re-evaluation, patient [remains afebrile, HD stable.] Reports he is feeling significantly better Laboratory workup independently interpreted by me and significant for no significant electrolyte derangement, mildly elevated LFTs, normal renal function. EKG independently interpreted by me and significant for sinus rhythm with sinus arrhythmia, ventricular rate of 70, no ischemic changes.. Given patient history, exam and workup, patient's presentation most likely represents muscle spasms. Underlying etiology is uncertain, patient does not seem dehydrated, nor does he have any significant electrolyte derangements. He is far enough out that he should be safe from a alcohol withdrawal standpoint at this time. No evidence of emergent pathology, patient symptomatically improved. Discharged in stable condition with return precautions. At time of discharge patient also started complaining about dryness in his mouth. On exam patient has some adherent white film on the tongue which appears consistent with thrush. He was discharged with prescription for antifungal coverage. Procedures Risk/Benefits of Procedure(s) Were Explained: Yes Critical Care Critical Care Time Critical Care Time: No
--- NOTE | 2024-07-25 04:48 | ECG_ITS ---
APPROVED REPORT Exam: Resting ECG HR:70 bpm ECG Measurements Heart Rate 70 AXES MD 139 P 62 QRSd 93 QRS 79 QT 386 T 68 QTc 407 Conclusion SINUS RHYTHM WITH SINUS ARRHYTHMIA NORMAL ECG UNCONFIRMED REPORT Electronically signed by : LAURA GUZMAN, 07/25/2024 23:12:29
[2024-07-25] MEDS: MVI, ADULT NO.1 WITH VIT K 10 ML, THIAMINE HCL 100 MG, MAGNESIUM SULFATE 2 GM in LACTAT... 150 ML IV (04:58)
[2024-07-25 05:00] LABS: Basophils # 0.1 K/mm3 (0-0.2); Basophils % 1.1 % (0.1-2.0); Eosinophils # 0.3 K/mm3 (0.0-0.4); Eosinophils % 2.6 % (0.1-12.0); Hematocrit 37.7 % (42.0-52.0); Hemoglobin 13.5 g/dL (14.1-18.0); Lymphocytes # 1.7 K/mm3 (0.7-4.5); Lymphocytes % 17.2 % (10-50); Mean Corpuscular HGB Conc 35.8 g/dL (31.8-35.4); Mean Corpuscular Hemoglobin 34.4 pg (27.0-31.2); Mean Corpuscular Volume 95.9 fl (80-94); Mean Platelet Volume 11.5 fl (7.4-10.4); Monocytes % 9.9 % (1.7-9.3); Neutrophils # 6.9 K/mm3 (1.8-7.8); Neutrophils % 68.9 % (37.0-80.0); Platelet Count 156 K/mm3 (142-424); Red Blood Count 3.93 M/mm3 (4.60-6.20); Red Cell Distribution Width 11.9 % (11.5-17.5)
[2024-07-25] MEDS: FOLIC ACID 1MG TABLET 1 MG PO (05:00)
[2024-07-25] MEDS: THIAMINE 100MG TABLET 100 MG PO (05:02)
[2024-07-25 05:07] LABS: Chloride 103 mmol/L (98-107)
[2024-07-25 05:08] LABS: Albumin Level 3.9 g/dl (3.5-5.0); Potassium 3.8 mmoL/L (3.5-5.1); Sodium 134 mmol/L (136-145)
[2024-07-25 05:10] LABS: Blood Urea Nitrogen 6 mg/dl (9-20); Creatinine Clearance Estimated 142 mL/min (50-200); Estimated Glomerular Filt Rate 109 ml/min (>60); GFR (African American) 132 ML/MIN (>60)
[2024-07-25 05:11] LABS: Alanine Aminotransferase 193 U/L (12-78); Albumin/Globulin Ratio 1.5 (1.1-1.8); Alkaline Phosphatase 65 U/L (38-126); Anion Gap 7.8 mEq/L (5-15); Aspartate Amino Transferase 188 U/L (17-59); Carbon Dioxide 27 mmol/L (22.0-30.0); Globulin 2.6 g/dL (1.3-3.2); Glucose 109 mg/dl (74-100); Magnesium 1.7 mg/dl (1.6-2.3); Phosphorous 3.7 mg/dl (2.5-4.5); Total Protein,Serum 6.5 g/dl (6.3-8.2)
[2024-07-25 05:28] LABS: T4 (Thyroxine) 7.8 ug/dl (5.53-11.0)
[2024-07-25 05:40] LABS: INR 0.87 (0.9-1.1); Prothrombin Time 9.9 seconds (10.1-12.5)
[2024-07-25 05:42] LABS: Thyroid Stimulating Hormone 2.47 uIU/mL (0.465-4.68)
[2024-07-25 09:03] LABS: HIV Combo NEGATIVE (Negative)
[2024-07-25 09:11] LABS: Hepatitis C Ab Qual. W/ RFX NEGATIVE (Negative)
== END 2024-07-25 06:57 | disposition home or self-care (01) ==
PROVIDERS: Emergency Provider Emergency Medicine
DX: R25.2 Cramp and spasm (principal); B37.0 Candidal stomatitis
CPT/HCPCS: 80053; 83735; 84100; 84436; 84443; 85025; 85610; 86803; 87389; 93005; 96361; 96365; 99283; J3411; J7120

== ENCOUNTER 2024-08-15 12:08 | Emergency (ER) | payer MEDICAID, SELFPAY ==
[2024-08-15 12:14] VITALS: BP 146/104; PULSE 92; RESP 18; TEMP 36.6; O2SAT 100; BMI 20.7
[2024-08-15 12:41] LABS: Basophils # 0.1 K/mm3 (0-0.2); Eosinophils # 0.2 K/mm3 (0.0-0.4); Eosinophils % 1.9 % (0.1-12.0); Hematocrit 42.8 % (42.0-52.0); Hemoglobin 15.5 g/dL (14.1-18.0); Lymphocytes # 2.1 K/mm3 (0.7-4.5); Lymphocytes % 24.4 % (10-50); Mean Corpuscular HGB Conc 36.2 g/dL (31.8-35.4); Mean Corpuscular Hemoglobin 33.8 pg (27.0-31.2); Mean Corpuscular Volume 93.4 fl (80-94); Mean Platelet Volume 11.5 fl (7.4-10.4); Monocytes # 0.7 K/mm3 (0.1-1.0); Neutrophils # 5.5 K/mm3 (1.8-7.8); Neutrophils % 64.6 % (37.0-80.0); Platelet Count 114 K/mm3 (142-424); Red Blood Count 4.58 M/mm3 (4.60-6.20); Red Cell Distribution Width 11.8 % (11.5-17.5); White Blood Count 8.6 K/mm3 (4.8-10.8)
--- NOTE | 2024-08-15 12:42 | ECG_ITS ---
APPROVED REPORT Exam: Resting ECG HR:84 bpm ECG Measurements Heart Rate 84 AXES IA 143 P 65 QRSd 92 QRS 81 QT 365 T 85 QTc 405 Conclusion SINUS RHYTHM NORMAL ECG Artifact in V3, no STEMI Electronically signed by : JASBIR GARCIA, 08/16/2024 03:48:28
[2024-08-15] MEDS: ONDANSETRON 4MG/2ML VIAL 4 MG IV (12:51)
[2024-08-15] MEDS: 0.9 % SODIUM CHLORIDE 1000ML 1,000 ML 999 ML IV (12:51)
[2024-08-15] MEDS: FOLIC ACID 1MG TABLET 1 MG PO (12:52)
[2024-08-15] MEDS: THIAMINE HCL 100 MG in 0.9 % SODIUM CHLORIDE 50 ML 204 MG IV (12:52)
[2024-08-15 12:55] LABS: Alanine Aminotransferase 156 U/L (12-78); Albumin Level 4.5 g/dl (3.5-5.0); Albumin/Globulin Ratio 1.6 (1.1-1.8); Alkaline Phosphatase 66 U/L (38-126); Anion Gap 5.6 mEq/L (5-15); Aspartate Amino Transferase 167 U/L (17-59); Bilirubin,Total 0.7 mg/dl (0.2-1.3); Blood Urea Nitrogen 3 mg/dl (9-20); Calcium 9.5 mg/dl (8.4-10.2); Carbon Dioxide 35 mmol/L (22.0-30.0); Chloride 100 mmol/L (98-107); Creatinine Clearance Estimated 133 mL/min (50-200); Estimated Glomerular Filt Rate 109 ml/min (>60); GFR (African American) 132 ML/MIN (>60); Globulin 2.8 g/dL (1.3-3.2); Glucose 117 mg/dl (74-100); Lipase 310 U/L (23-300); Potassium 3.6 mmoL/L (3.5-5.1); Sodium 137 mmol/L (136-145); Total Protein,Serum 7.3 g/dl (6.3-8.2)
[2024-08-15 12:56] LABS: Lactic Acid 1.6 mmol/L (0.7-2.1)
--- NOTE | 2024-08-15 13:01 | ED_ITS ---
<Statement entered by Kiara Lawrence DO - 08/15/24 15:38> I was consulted by the VERONICA, and we discussed the complexity of the problems being addressed. I approved the treatment and management plan for this patient's care in the emergency department, thus performing a substantive portion of the medical decision making. I provided Librium taper to help with alcohol withdrawal symptoms. Patient was given instructions to not drink while taking his medications. He was given instructions to return if he changes mind and wishes to be admitted for detox and further support Kiara Lawrence DO Discharge Plan Disposition Patient Disposition: Left Against Medical Advice Prescriptions Prescriptions: New chlordiazepoxide HCl 25 mg capsule See Rx Instructions .ROUTE .COMPLEX Qty: 15 0RF Rx Instructions: Day 1: 50mg q6h Day 2: 25mg q6h Day 3: 25mg q12h Day 4: 25mg at night (Rx fifteen 25mg tabs) No Action ondansetron 4 mg Tablet,Disintegrating 4 mg PO Q8H PRN (Reason: Nausea) Qty: 12 0RF clotrimazole 10 mg jia 10 mg mucous membrane QID 7 Days Qty: 28 0RF Referrals Follow up/Referrals: Provider,Referral, MD [Primary Care Provider] - See instructions Activity Restrictions/Add. Instructions Additional Instructions/Restrictions: Please tack picker your prescription for Librium and take as prescribed to help taper yourself from alcohol and prevent withdrawal. Return to the emergency department if you change your mind and wish to be admitted. Clinical Impressions Clinical Impression: Alcohol withdrawal Instructions Patient Instructions: DI for Alcohol Use Disorder Print Language Print Language: Congolese Discharge ED Provider: Kiara Lawrence General Adult HPI <CLIFTON Del Rosario - Last Filed: 08/15/24 14:53> General Chief complaint: Alcohol Stated complaint: alcohol withdrawl vomiting, hullucinations, shakin Time Seen by Provider: 08/15/24 12:24 Mode of Arrival: Ambulatory Source of Information: Patient Description of Symptoms (Recalled from ER Triage Doc. by RN): Pt states he has been abusing alcohol since before . Pt states he drinks a fifth a day of fireball per day, last drink was this AM. Pt states he has been having auditory and visual hallucinations. Pt has been trying to decrease his alcohol use the couple of days. Pt has had diarrhea. Pt feels shaky. denies seizure hx. History of Present Illness HPI narrative: 34-year-old male presents the emergency department with concerns of alcohol withdrawal symptomatology. Patient states he has been drinking a fifth of whiskey or more daily for the last 3 months, last drink was this morning he drank approximately 6 shots of fireball , patient admits to feeling depressed and anxious, does have history of anxiety/depression, he also endorses visual and auditory hallucination for the last 2 to 3 weeks, no seizure activity thus far, admits to nausea, some vomiting and poor p.o. intake at times, patient has not fever chills chest pain shortness of breath, no abdominal pain, no urinary type symptomatology, no constipation, some diarrhea at times, patient wants to quit as had been trying to decrease his alcohol consumption over the last several days ever since the hallucinations have started. Other past medical history is consistent with current everyday smoker, otherwise no real relevant past medical history, takes no other medications at home. Triage vitals are unremarkable at this time. Of note, patient was recently evaluated by OSH facility for alcohol withdrawal Onset (ago): month(s) Related Data Previous Rx's ?Medication ?Instructions ?Recorded ondansetron 4 mg disintegrating 4 mg PO Q8H PRN Nausea #12 tabs 10/14/23 tablet clotrimazole 10 mg jia 10 mg mucous membrane QID 7 days 07/25/24 #28 tabs chlordiazepoxide HCl 25 mg capsule See Rx Instructions .Route 08/15/24 .COMPLEX #15 caps Allergies Allergy/AdvReac Type Severity Reaction Status Date / Time Penicillins Allergy Verified 10/14/23 11:00 [facility] <CLIFTON Del Rosario - Last Filed: 08/15/24 14:53> [facility] Disclaimer: The information contained in this section may have been updated after the patient was seen, as this information can be updated by other users. 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) No significant past medical history Social History Smoking Status: Current every day smoker tobacco type: cigarettes packs per day: 14 and smokeless tobacco second hand exposure: Yes alcohol intake: never current occupational status: other Travel in the last 8 weeks: None Have you lived/traveled outside [place] in past 30 days?: No Contact w/someone who lives/traveled outside US past 30 days?: No Exposure to someone with infectious disease in past 14 days?: No Do you have a fever (greater than 100.4 F or 38 C)?: No Have you tested positive for COVID-19: No Exposed to someone with COVID-19 in past 14 days?: No Do you have a sore throat?: No Do you have a cough?: No Do you have any weakness?: No Do you have any diarrhea?: No Are you experiencing any unusual bleeding?: No Do you have any muscle aches/pain?: No Do you have any abdominal pain?: No Are you experiencing loss of taste or smell?: No Other 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 Have you received the Flu Vaccine for this season: No Have you received the Pneumonia Vaccine: No <CLIFTON Del Rosario - Last Filed: 08/15/24 14:53> ROS Obtained: Yes All systems reviewed & no additional complaints except as documented Physical Exam <CLIFTON Del Rosario - Last Filed: 08/15/24 14:53> General General appearance: alert, in no apparent distress and anxious Head Head exam: atraumatic and normocephalic Eye Eye exam: Present PERRL and EOMI ENT ENT exam: Present mucous membranes moist Neck Neck exam: Present normal inspection Chest Chest inspection: Present normal inspection and symmetric chest wall rise Respiratory Respiratory exam: Present normal lung sounds bilaterally; Absent respiratory distress Cardiovascular Cardiovascular exam: Present regular rate and normal rhythm Abdominal Exam Abdominal exam: Present soft; Absent tenderness Extremities Exam Extremities exam: Present normal inspection Neurological Exam Neurological exam: Present alert, oriented X3 and other (Mild intention tremor noted bilaterally) Psychiatric Psychiatric exam: Present normal affect Skin Skin exam: Present warm and dry Medical Decision Making <CLIFTON Del Rosario - Last Filed: 08/15/24 14:53> Medical Records Medical records reviewed: Yes I reviewed the patient's medical records. Screening: Per USPSTF and CDC recommendations, given the prevalence of disease in our region, it is our hospital?s policy to screen for HIV and viral Hepatitis for all patients aged 18 and over and those with ongoing risk factors. John Inquiry Pt receiving controlled substance: Yes John was queried for this patient: No Reason not queried -: Emergent pt cond-no time Risks and benefits of using a controlled substance: were discussed with pt by me Vital Signs: 08/15/24 12:14 08/15/24 13:30 Temperature 98 F Temperature Source Oral Pulse Rate 86 Pulse Rate [Right] 92 H Respiratory Rate 18 12 Blood Pressure 125/83 Blood Pressure [Right Arm] 146/104 H Blood Pressure Mean [Right Arm] 118 Blood Pressure Source [Right Arm] Automatic Cuff Blood Pressure Position [Right Arm] Sitting 02 Sat by Pulse Oximetry 100 96 Oxygen Delivery Method Room Air Room Air Lab Data Lab Results 08/15/24 12:30: WBC 8.6, RBC 4.58 L, Hgb 15.5, Hct 42.8, MCV 93.4, MCH 33.8 H, M CHC 36.2 H, RDW 11.8, Plt Count 114 L, MPV 11.5 H, Neut % (Auto) 64.6, Lymph % (Auto) 24.4, [place] % (Auto) 8.0, Eos % (Auto) 1.9, Baso % (Auto) 1.0, Neut # (Auto) 5.5, Lymph # (Auto) 2.1, [place] # (Auto) 0.7, Eos # (Auto) 0.2, Baso # (Auto) 0.1, PT 9.3 L, INR 0.81 L, APTT 30.6, Sodium 137, Potassium 3.6, Chloride 100, Carbon Dioxide 35 H, Anion Gap 5.6, BUN 3 L, Creatinine 0.80, Estimated Creat Clear 133, Estimated GFR 109, Est GFR ( Amer) 132, Glucose 117 H, Lactate 1.6, Calcium 9.5, Phosphorus 3.3, Magnesium 1.7, Total Bilirubin 0.7, G GT 141 H, AST 167 H, ALT 156 H, Alkaline Phosphatase 66, Total Protein 7.3, Albumin 4.5, Globulin 2.8, Albumin/Globulin Ratio 1.6, Lipase 310 H, P lasma/Serum Alcohol 304 H 08/15/24 13:49: Urine Color Yellow, Urine Appearance Clear, Urine pH 6.0, Ur Specific [place] <= 1.005, Urine Protein Negative, Urine Glucose (UA) Negative, Urine Ketones Negative, Urine Blood Negative, Urine Nitrate Negative, Urine Bilirubin Negative, Urine Urobilinogen 0.2, Ur Leukocyte Esterase Negative, Urine RBC None, Urine WBC None, Ur Squamous Epith Cells Occasional, Urine Bacteria None, Urine Opiates Screen Negative, Urine Methadone Screen Negative, Ur Barbituates Screen Negative, Ur Phencyclidine Scrn Negative, Ur Amphetamines Screen Negative, U Benzodiazepines Scrn Negative, Urine Cocaine Screen Negative, U Marijuana (THC) Screen Negative 08/15/24 12:30 08/15/24 12:30 Orders (Tests/Meds): ED MEDICATIONS Generic Name Dose Route Start Last Admin Trade Name Freq PRN Reason Stop Dose Admin Folic Acid 1 mg 08/16/24 09:00 Folic Acid 1mg Tablet PO 09/15/24 08:59 DAILY CYNDI Lorazepam 1 mg 08/15/24 12:51 08/15/24 13:06 Lorazepam 2mg/Ml Vial IV 09/14/24 12:50 1 mg Q1HP PRN Administration CIWA Score 8-15 Multivitamins 1 each 08/15/24 17:00 Multivitamin Tablet PO 09/14/24 16:59 1700 CYNDI Sodium Chloride 10 ml 08/15/24 12:51 Sodium Chloride 0.9% 10ml Vial IV 09/14/24 12:50 NEEDED PRN to Dilute Lorazepam inj Discontinued Medications Generic Name Dose Route Start Last Admin Trade Name Freq PRN Reason Stop Dose Admin Folic Acid 1 mg 08/15/24 12:36 08/15/24 12:52 Folic Acid 1mg Tablet PO 08/15/24 12:37 1 mg DAILY ONE Administration Sodium Chloride 1,000 mls @ 999 mls/hr 08/15/24 12:35 08/15/24 12:51 Sod Chlor 0.9% 1000ml Bag IV 08/15/24 13:35 999 mls/hr .Q1H1M ONE Administration Thiamine HCl 100 mg/ Sodium 51 mls @ 204 mls/hr 08/15/24 12:45 08/15/24 12:52 Chloride IV 08/15/24 12:59 204 mls/hr ONCE ONE Administration Ondansetron HCl 4 mg 08/15/24 12:47 08/15/24 12:51 Ondansetron 4mg/2ml Vial IV 08/15/24 12:48 4 mg ONCE ONE Administration ORDERS Category Date Time Status Consult Supervisory Investigative Specialist [CONS] Routine Cons 08/15/24 12:40 Active Blood alcohol [Ethyl Alcohol] Stat Lab 08/15/24 12:30 Completed Complete Blood Count Auto Diff Stat Lab 08/15/24 12:30 Completed Comprehensive Metabolic Panel Stat Lab 08/15/24 12:30 Completed GGT [Gamma Glutamyl Transpeptidase] Stat Lab 08/15/24 12:30 Completed Lactic Acid Stat Lab 08/15/24 12:30 Completed Lipase Stat Lab 08/15/24 12:30 Completed Magnesium Stat Lab 08/15/24 12:30 Completed PT INR [Prothrombin Time INR] Stat Lab 08/15/24 12:30 Completed PTT [Activated Partial Thrombo Time] Stat Lab 08/15/24 12:30 Completed Phosphorous Routine Lab 08/15/24 12:30 Completed UDS [Drug Screen,Urine] Stat Lab 08/15/24 13:49 Completed Urinalysis and Microscopic Stat Lab 08/15/24 13:49 Completed Medical Decision Narrative: 34-year-old male presents to the emergency department with alcohol withdrawal symptomatology, differential diagnose, O2, alcohol withdrawal, encephalopathy, [place] encephalopathy, alcohol withdrawal hallucinations, metabolic cephalopathy, uremic encephalopathy, hypovolemia, already arrhythmia, electrolyte disturbance, liver cirrhosis, acute liver failure. Discussed patient case with attending physician Obtain basic operatory studies, UDS, EKG, seizure precautions, urinalysis, ethyl alcohol level, GGT lipase lactate, PT/INR PTT, phosphorus level, magnesium level, will consult workforce development specialist, will obtain CIWA score, give 1 L IV NS, 1 mg p.o. folic acid, 1 multivitamin, will give 4 mg IV Zofran for nausea, and 100 mg IV thiamine, as well as 1 mg Ativan for alcohol withdrawal symptomatology. CBC unremarkable No lactic acidosis, AST is elevated at 167, ALT is up at 156 Ethyl alcohol level is elevated at 304 Lipase level is mildly elevated at 310. Urinalysis unremarkable. UDS negative PT is 9.3, INR is decreased 0.81, PTT within normal limits. I had a long discussion with the patient and family at the bedside, offered admission for alcohol withdrawal symptomatology, patient at this time would like to leave AGAINST MEDICAL ADVICE and not stay inpatient for treatment. Patient is GCS of 15, at his baseline, acknowledged all risk including of leaving AGAINST MEDICAL ADVICE. Patient's family member (mother) at the bedside acknowledged this as well was present for the conversation. I gave strict ED return precaution patient will return to the emerged with any worsening signs or symptoms. Patient will take medication as prescribed, I will prescribe Librium taper for acute alcohol withdrawal symptomatology, very strict instructions were given not to drink on Librium taper. Patient voiced understanding. Will follow-up with PCP as directed, as well as workforce development specialist will set up outpatient treatment/alcohol rehab for the patient. Patient voiced understanding and agreement with the current plan to leave AGAINST MEDICAL ADVICE. <Kiaar Elizabeth Howard, DO - Last Filed: 08/15/24 13:40> Vital Signs: 08/15/24 12:14 08/15/24 13:30 Temperature 98 F Temperature Source Oral Pulse Rate 86 Pulse Rate [Right] 92 H Respiratory Rate 18 12 Blood Pressure 125/83 Blood Pressure [Right Arm] 146/104 H Blood Pressure Mean [Right Arm] 118 Blood Pressure Source [Right Arm] Automatic Cuff Blood Pressure Position [Right Arm] Sitting 02 Sat by Pulse Oximetry 100 96 Oxygen Delivery Method Room Air Room Air Lab Data Lab Results 08/15/24 12:30: WBC 8.6, RBC 4.58 L, Hgb 15.5, Hct 42.8, MCV 93.4, MCH 33.8 H, M CHC 36.2 H, RDW 11.8, Plt Count 114 L, MPV 11.5 H, Neut % (Auto) 64.6, Lymph % (Auto) 24.4, [place] % (Auto) 8.0, Eos % (Auto) 1.9, Baso % (Auto) 1.0, Neut # (Auto) 5.5, Lymph # (Auto) 2.1, [place] # (Auto) 0.7, Eos # (Auto) 0.2, Baso # (Auto) 0.1, PT 9.3 L, INR 0.81 L, APTT 30.6, Sodium 137, Potassium 3.6, Chloride 100, Carbon Dioxide 35 H, Anion Gap 5.6, BUN 3 L, Creatinine 0.80, Estimated Creat Clear 133, Estimated GFR 109, Est GFR ( Amer) 132, Glucose 117 H, Lactate 1.6, Calcium 9.5, Phosphorus 3.3, Magnesium 1.7, Total Bilirubin 0.7, G GT 141 H, AST 167 H, ALT 156 H, Alkaline Phosphatase 66, Total Protein 7.3, Albumin 4.5, Globulin 2.8, Albumin/Globulin Ratio 1.6, Lipase 310 H, P lasma/Serum Alcohol 304 H 08/15/24 13:49: Urine Color Yellow, Urine Appearance Clear, Urine pH 6.0, Ur Specific [place] <= 1.005, Urine Protein Negative, Urine Glucose (UA) Negative, Urine Ketones Negative, Urine Blood Negative, Urine Nitrate Negative, Urine Bilirubin Negative, Urine Urobilinogen 0.2, Ur Leukocyte Esterase Negative, Urine RBC None, Urine WBC None, Ur Squamous Epith Cells Occasional, Urine Bacteria None, Urine Opiates Screen Negative, Urine Methadone Screen Negative, Ur Barbituates Screen Negative, Ur Phencyclidine Scrn Negative, Ur Amphetamines Screen Negative, U Benzodiazepines Scrn Negative, Urine Cocaine Screen Negative, U Marijuana (THC) Screen Negative Orders (Tests/Meds): ED MEDICATIONS Generic Name Dose Route Start Last Admin Trade Name Freroxanne PRN Reason Stop Dose Admin Folic Acid 1 mg 08/16/24 09:00 Folic Acid 1mg Tablet PO 09/15/24 08:59 DAILY CYNDI Lorazepam 1 mg 08/15/24 12:51 08/15/24 13:06 Lorazepam 2mg/Ml Vial IV 09/14/24 12:50 1 mg Q1HP PRN Administration CIWA Score 8-15 Multivitamins 1 each 08/15/24 17:00 Multivitamin Tablet PO 09/14/24 16:59 1700 CYNDI Sodium Chloride 10 ml 08/15/24 12:51 Sodium Chloride 0.9% 10ml Vial IV 09/14/24 12:50 NEEDED PRN to Dilute Lorazepam inj Discontinued Medications Generic Name Dose Route Start Last Admin Trade Name Flores PRN Reason Stop Dose Admin Folic Acid 1 mg 08/15/24 12:36 08/15/24 12:52 Folic Acid 1mg Tablet PO 08/15/24 12:37 1 mg DAILY ONE Administration Sodium Chloride 1,000 mls @ 999 mls/hr 08/15/24 12:35 08/15/24 12:51 Sod Chlor 0.9% 1000ml Bag IV 08/15/24 13:35 999 mls/hr .Q1H1M ONE Administration Thiamine HCl 100 mg/ Sodium 51 mls @ 204 mls/hr 08/15/24 12:45 08/15/24 12:52 Chloride IV 08/15/24 12:59 204 mls/hr ONCE ONE Administration Ondansetron HCl 4 mg 08/15/24 12:47 08/15/24 12:51 Ondansetron 4mg/2ml Vial IV 08/15/24 12:48 4 mg ONCE ONE Administration ORDERS Category Date Time Status Consult Supervisory Investigative Specialist [CONS] Routine Cons 08/15/24 12:40 Active Blood alcohol [Ethyl Alcohol] Stat Lab 08/15/24 12:30 Completed Complete Blood Count Auto Diff Stat Lab 08/15/24 12:30 Completed Comprehensive Metabolic Panel Stat Lab 08/15/24 12:30 Completed GGT [Gamma Glutamyl Transpeptidase] Stat Lab 08/15/24 12:30 Completed Lactic Acid Stat Lab 08/15/24 12:30 Completed Lipase Stat Lab 08/15/24 12:30 Completed Magnesium Stat Lab 08/15/24 12:30 Completed PT INR [Prothrombin Time INR] Stat Lab 08/15/24 12:30 Completed PTT [Activated Partial Thrombo Time] Stat Lab 08/15/24 12:30 Completed Phosphorous Routine Lab 08/15/24 12:30 Completed UDS [Drug Screen,Urine] Stat Lab 08/15/24 13:49 Completed Urinalysis and Microscopic Stat Lab 08/15/24 13:49 Completed ECG Data Tracing #1: I reviewed this ECG and interpreted as documented below: Normal sinus rhythm with a ventricular of [address] changes concerning for STEMI. Some motion artifact in V3 and V1. Normal intervals ECG initial impression date: 08/15/24 ECG initial impression time: 12:43 Critical Care <CLIFTON Del Rosario - Last Filed: 08/15/24 14:53> Critical Care Time Critical Care Time: No
[2024-08-15 13:02] LABS: Phosphorous 3.3 mg/dl (2.5-4.5)
[2024-08-15 13:05] LABS: Ethyl Alcohol 304 mg/dl (0-10)
[2024-08-15] MEDS: LORazepam 2MG/ML VIAL 1 MG IV (13:06)
[2024-08-15 13:25] LABS: Gamma Glutamyl Transpeptidase 141 U/L (15-73)
[2024-08-15 13:30] VITALS: BP 125/83; PULSE 86; RESP 12; O2SAT 96
[2024-08-15 13:49] LABS: Magnesium 1.7 mg/dl (1.6-2.3)
[2024-08-15 13:52] LABS: Microscopic, Urine URINE MICROSCOPIC (MICROSCOPIC)
[2024-08-15 13:54] LABS: Activated Partial Thrombo Time 30.6 seconds (22.8-30.6); INR 0.81 (0.9-1.1); Prothrombin Time 9.3 seconds (10.1-12.5)
[2024-08-15 13:59] LABS: Appearance,Urine CLEAR (Clear); Bilirubin,Urine Negative (Negative); Blood, Urine Negative (Negative); Color,Urine YELLOW (Yellow); Glucose,Urine (UA) Negative (Negative); Ketones,Urine Negative (Negative); Leukocyte Esterase,Urine Negative (Negative); Nitrate,Urine Negative (Negative); Protein,Urine Negative (Negative); Specific Gravity, Urine <= 1.005 (1.005-1.030); Urobilinogen,Urine 0.2 EU/dl (0.2)
[2024-08-15 14:19] LABS: Amphetamine/Metha Screen,Urine Negative ng/ml (<1000); Barbiturates Screen,Urine Negative ng/ml (<200)
[2024-08-15 14:21] LABS: Cannabinoid Screen,Urine Negative ng/ml (<50); Cocaine Screen,Urine Negative ng/ml (<300)
[2024-08-15 14:22] LABS: Methadone Screen,Urine Negative ng/ml (<300)
[2024-08-15 14:23] LABS: Opiate Screen,Urine Negative ng/ml (<300); Phencyclidine Screen,Urine Negative ng/ml (<25)
[2024-08-15 14:27] LABS: Squamous Epithelial Cell,Urine Occasional #/hpf (0-5)
[2024-08-15 14:31] LABS: Benzodiazepines Screen,Urine Negative ng/ml (<200)
--- NOTE | 2024-08-15 14:45 | PC.NURSE ---
NOLA FROM [facility] SPEAKING WITH PT AND MOM
[2024-08-15 14:56] VITALS: BP 126/91; PULSE 83; O2SAT 98
[2024-08-15 15:00] VITALS: BP 126/91; PULSE 80; RESP 20; TEMP 36.8; O2SAT 96
--- NOTE | 2024-08-15 15:02 | PC.NURSE ---
pt left ama with form signed after speaking with provider and received a librium taper dose, all questions answered and resources provided
--- NOTE | 2024-08-17 18:28 | PEERSUPPORT ---
Peer Support Note Patient Information Patient Information: DOS: 08/15/2024 Reason: ETOH/AUD ED Peer Support Consult ? Building Rapport: Pt stated he has been drinking 2-3 sleeves of fireball per day. Each bottle has 1.7 fluid oz. Equaling a fifth or more each day. He stated he has not been eating or drinking any other liquids but the alcohol. His relationships in life are being affected? by his drinking and no longer able to hold a job down. ? ? ETOH Last Ingested: Today before reporting to ED. 08/15/2024 9 am ? ETOH HX: Opiate use disorder in the past, patient has not used opiates in multiple years. For years managed to drink 6, 16 oz. beers after work, go to sleep, then work the next day without any issues. Since fall he began drinking fireball mini bottles 1.7 fl. Oz that lead him to drinking 10-15 mini bottles per day.? ? Previous Treatment: MAT: Pt was on suboxone, then decided to stop cold turkey, and refuses to go back on it due to the withdrawals of coming off of it. ? Legal Issues: None ? Support System: Step mother: Ivelisse : Neema father: in recovery multiple years from alcohol Friend: Charles in recovery ? Current Stressors: -Relationships -Withdrawals: Hallucinations and tremors -Night thayer- not able to sleep -Basics : not eating or drinking fluids ? Motivation for Change: Pt stated that he does not want to go on like this, he is interested in committing to inpatient treatment. He loves his daughters very much and want to be there for them. 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 He feels weak and scared with loosing so much weight and very upset that he left himself get to this point with alcohol after the drugs he was able to stop before. ? Ps shared personal experiences relevant to situation to foster hope and strength to make necessary changes to fulfill his many roles in life through recovery.? ? -Amandeep Amin Ed provider agrees to report pt for admit to [facility] for withdrawal management to then report to inpatient. ? -Pt denies admission to hospital today saying he needed to take care of personal things before going. He stated he would go following day when he discussed with his family, friend Charles, and saw his kids. ? Potential Barriers: -Lack of connection to recovery -lack of self-care -Boundaries -Untreated underlying issues; anxiety, depression ? Insurance: none active at this time (To connect with Lydia Menchaca/[facility] for guidance on insurance) ? Harm Reduction: -Connection to recovery peer support -Referral list for all levels of care for treatment: Detox, in-patient, outpatient -ED provider Rx Librium taper to assist with alcohol withdrawal with directions. -Advise No drinking ? Recovery Plan: -Pt agrees to follow up phone calls with peer support -Report to [facility]- if patient does not decided to go inpatient treatment -Ps will follow up on next day to offer recovery support and guidance. ?
== END 2024-08-15 15:01 | disposition left against medical advice (07) ==
PROVIDERS: Physician Assistant; Emergency Provider Emergency Medicine
DX: F10.239 Alcohol dependence with withdrawal, unspecified (principal); R44.0 Auditory hallucinations; R44.1 Visual hallucinations; R19.7 Diarrhea, unspecified; F41.9 Anxiety disorder, unspecified; R25.1 Tremor, unspecified; F32.A Depression, unspecified; R11.2 Nausea with vomiting, unspecified; F17.210 Nicotine dependence, cigarettes, uncomplicated; F17.290 Nicotine dependence, other tobacco product, uncomplicated; Y90.8 Blood alcohol level of 240 mg/100 ml or more
CPT/HCPCS: 80053; 80307; 80320; 81001; 82977; 83605; 83690; 83735; 84100; 85025; 85610; 85730; 93005; 96361; 96365; 96374; 99285; J2060; J2405; J3411; J7030

== ENCOUNTER 2024-08-16 12:03 | Inpatient (IN) | payer MEDICAID, SELFPAY ==
[2024-08-16] VITALS (15 sets, daily range): BP systolic 101–137; BP diastolic 55–95; PULSE 44–93; RESP 13–21; TEMP 36.9–37.2; O2SAT 91–99; BMI 20.5
[2024-08-16 12:27] LABS: Basophils # 0.1 K/mm3 (0-0.2); Basophils % 0.6 % (0.1-2.0); Eosinophils # 0.1 K/mm3 (0.0-0.4); Eosinophils % 0.8 % (0.1-12.0); Hematocrit 40.8 % (42.0-52.0); Hemoglobin 14.5 g/dL (14.1-18.0); Lymphocytes # 1.1 K/mm3 (0.7-4.5); Lymphocytes % 11.3 % (10-50); Mean Corpuscular HGB Conc 35.5 g/dL (31.8-35.4); Mean Corpuscular Hemoglobin 34.1 pg (27.0-31.2); Mean Platelet Volume 11.3 fl (7.4-10.4); Monocytes # 0.9 K/mm3 (0.1-1.0); Monocytes % 9.5 % (1.7-9.3); Neutrophils # 7.4 K/mm3 (1.8-7.8); Neutrophils % 77.5 % (37.0-80.0); Platelet Count 103 K/mm3 (142-424); Red Blood Count 4.25 M/mm3 (4.60-6.20); Red Cell Distribution Width 12.3 % (11.5-17.5); White Blood Count 9.5 K/mm3 (4.8-10.8)
--- NOTE | 2024-08-16 12:29 | ED_ITS ---
Discharge Plan Disposition Patient Disposition: Admitted Condition: Fair Clinical Impressions Clinical Impression: Alcohol withdrawal Qualifiers: Complication of substance-induced condition: uncomplicated Qualified Code(s): F 10.930 - Alcohol use, unspecified with withdrawal, uncomplicated Discharge ED Provider: Michael Eng General Adult HPI <CLIFTON Del Rosario - Last Filed: 08/16/24 17:02> General Chief complaint: Alcohol Stated complaint: Alcohol withdrawal Time Seen by Provider: 08/16/24 12:13 Mode of Arrival: Ambulatory Source of Information: Patient Limitations: No Limitations History of Present Illness HPI narrative: 34-year-old male presents to the emergency department for alcohol withdrawal symptomatology, patient is well-known to the emergency department was actually seen yesterday on 08/15/2024 for similar complaint, was offered admission for a CIWA of around 12-13 yesterday, decided to leave AGAINST MEDICAL ADVICE was sent home on Librium taper. Patient returns today and states his symptoms are worse, and states that I am ready to stay this time . He endorses nausea vomiting, he had 3 shots of fireball , this morning, and his normal alcohol consumption last night, he did not start the Librium as prescribed. He endorses tremulousness, anxiety, restlessness, does have history of auditory and visual hallucinations, no auditory visual hallucinations today. Patient is a current everyday smoker, no other real relevant past medical history takes no other medications at home. Initial triage vitals unremarkable, NIH is 19 per nursing staff. Onset (ago): hour(s) Related Data Home Medications ?Medication ?Instructions ?Recorded ?Confirmed No Known Home Medications 08/16/24 08/16/24 Allergies Allergy/AdvReac Type Severity Reaction Status Date / Time Penicillins Allergy Rash Verified 08/16/24 17:35 PFS <CLIFTON Del Rosario - Last Filed: 08/16/24 17:02> [facility] Disclaimer: The information contained in this section may have been updated after the patient was seen, as this information can be updated by other users. 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 , [employer]) No significant past medical history Social History Smoking Status: Current every day smoker tobacco type: cigarettes packs per day: 14 and smokeless tobacco second hand exposure: Yes alcohol intake: current current occupational status: unemployed and other Travel in the last 8 weeks: None Have you lived/traveled outside [place] in past 30 days?: No Contact w/someone who lives/traveled outside US past 30 days?: No Exposure to someone with infectious disease in past 14 days?: No Do you have a fever (greater than 100.4 F or 38 C)?: No Have you tested positive for COVID-19: No Exposed to someone with COVID-19 in past 14 days?: No Do you have a sore throat?: No Do you have a cough?: No Do you have any weakness?: No Do you have any diarrhea?: No Are you experiencing any unusual bleeding?: No Do you have any muscle aches/pain?: No Do you have any abdominal pain?: No Are you experiencing loss of taste or smell?: No Other 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 Have you received the Flu Vaccine for this season: No Have you received the Pneumonia Vaccine: No <CLIFTON Del Rosario - Last Filed: 08/16/24 17:02> ROS Obtained: Yes All systems reviewed & no additional complaints except as documented Physical Exam <CLIFTON Del Rosario - Last Filed: 08/16/24 17:02> General General appearance: alert, in no apparent distress and anxious Comment: Moderately anxious appearing, obviously agitated, actively tremulous Head Head exam: atraumatic and normocephalic Eye Eye exam: Present PERRL and EOMI ENT ENT exam: Present mucous membranes moist Neck Neck exam: Present normal inspection Chest Chest inspection: Present normal inspection and symmetric chest wall rise Respiratory Respiratory exam: Present normal lung sounds bilaterally; Absent respiratory distress Cardiovascular Cardiovascular exam: Present regular rate and normal rhythm Abdominal Exam Abdominal exam: Present soft; Absent tenderness Extremities Exam Extremities exam: Present normal inspection Neurological Exam Neurological exam: Present alert and oriented X3 Psychiatric Psychiatric exam: Present normal affect Skin Skin exam: Present warm and dry Medical Decision Making <CLIFTON Del Rosario - Last Filed: 08/16/24 17:02> Medical Records Medical records reviewed: Yes I reviewed the patient's medical records. Screening: Per USPSTF and CDC recommendations, given the prevalence of disease in our region, it is our hospital?s policy to screen for HIV and viral Hepatitis for all patients aged 18 and over and those with ongoing risk factors. John Inquiry Pt receiving controlled substance: No John was queried for this patient: No Vital Signs: 08/16/24 12:20 08/16/24 12:59 08/16/24 13:30 Temperature 98.4 F Temperature Source Oral Pulse Rate 44 L 72 Pulse Rate [Left Radial] 81 Respiratory Rate 19 20 Blood Pressure 132/85 119/80 Blood Pressure [Right Arm] 134/78 Blood Pressure Mean [Right Arm] 96 Blood Pressure Source Blood Pressure Position 02 Sat by Pulse Oximetry 97 94 L 99 Oxygen Delivery Method 08/16/24 14:00 08/16/24 14:30 08/16/24 15:00 Temperature Temperature Source Pulse Rate 81 79 Pulse Rate [Left Radial] Respiratory Rate 13 20 18 Blood Pressure 124/75 117/81 101/63 L Blood Pressure [Right Arm] Blood Pressure Mean [Right Arm] Blood Pressure Source Blood Pressure Position 02 Sat by Pulse Oximetry 98 98 Oxygen Delivery Method Room Air Room Air 08/16/24 15:30 08/16/24 16:00 08/16/24 16:06 Temperature Temperature Source Pulse Rate 75 74 Pulse Rate [Left Radial] 93 H Respiratory Rate 14 21 Blood Pressure 134/90 137/84 Blood Pressure [Right Arm] Blood Pressure Mean [Right Arm] Blood Pressure Source Blood Pressure Position 02 Sat by Pulse Oximetry 98 96 98 Oxygen Delivery Method Room Air Room Air Room Air 08/16/24 17:00 08/16/24 17:03 Temperature 98.4 F Temperature Source Oral Pulse Rate 74 Pulse Rate [Left Radial] Respiratory Rate 21 Blood Pressure 137/84 Blood Pressure [Right Arm] Blood Pressure Mean [Right Arm] Blood Pressure Source Automatic Cuff Blood Pressure Position Sitting 02 Sat by Pulse Oximetry Oxygen Delivery Method Room Air Room Air Lab Data Lab results reviewed: Yes I reviewed the patient's lab results. Lab Results 08/16/24 12:14: WBC 9.5, RBC 4.25 L, Hgb 14.5, Hct 40.8 L, MCV 96.0 H, MCH 34.1 H, MCHC 35.5 H, RDW 12.3, Plt Count 103 L, MPV 11.3 H, Neut % (Auto) 77.5, Lymph % (Auto) 11.3, [place] % (Auto) 9.5 H, Eos % (Auto) 0.8, Baso % (Auto) 0.6, Neut # (Auto) 7.4, Lymph # (Auto) 1.1, [place] # (Auto) 0.9, Eos # (Auto) 0.1, Baso # (Auto) 0.1, PT 9.7 L, INR 0.85 L, APTT 29.9, Sodium 140, Potassium 3.7, Chloride 104, Carbon Dioxide 32 H, Anion Gap 7.7, BUN 6 L D, Creatinine 0.80, Estimated GFR 109, Est GFR ( Amer) 132, Glucose 108 H, Calcium 9.1, Phosphorus 2.6, Magnesium 1.8, Total Bilirubin 0.8, AST 167 H, ALT 135 H, Alkaline Phosphatase 83, Total Protein 7.0, Albumin 4.5, Globulin 2.5, Albumin/Globulin Ratio 1.8, L ipase 339 H, Urine Opiates Screen Negative, Urine Methadone Screen Negative, Ur Barbituates Screen Negative, Ur Phencyclidine Scrn Negative, Ur Amphetamines Screen Negative, U Benzodiazepines Scrn Negative, Urine Cocaine Screen Negative, U Marijuana (THC) Screen Negative, Plasma/Serum Alcohol 129 H 08/16/24 14:40: Lactate 1.8 08/17/24 05:00 08/17/24 05:00 Orders (Tests/Meds): ED MEDICATIONS Generic Name Dose Route Start Last Admin Trade Name Flores PRN Reason Stop Dose Admin Acetaminophen 650 mg 08/16/24 18:09 Acetaminophen 325mg Tab PO 09/15/24 18:08 Q4HP PRN Fever or Mild Pain (1-3) Enoxaparin Sodium 40 mg 08/17/24 09:00 08/17/24 08:35 Enoxaparin 40mg/0.4ml Syringe SUBCUT 09/16/24 08:59 40 mg DAILY CYNDI Administration Folic Acid 1 mg 08/17/24 09:00 08/17/24 08:35 Folic Acid 1mg Tablet PO 09/16/24 08:59 1 mg DAILY CYNDI Administration Lorazepam 2 mg 08/16/24 18:12 Lorazepam 2mg/Ml Vial IV 09/15/24 18:11 Q1HP PRN CIWA >16 Lorazepam 1 mg 08/16/24 18:12 08/16/24 18:33 Lorazepam 1mg Tablet PO 09/15/24 18:11 1 mg Q1HP PRN Administration CIWA Score 8-15 Lorazepam 1 mg 03/25/25 18:12 08/17/24 02:00 Lorazepam 1mg Tablet PO 09/15/24 18:11 1 mg Q6HP PRN Administration Ciwa 2-7, Insomnia Multivitamins 1 each 08/17/24 17:00 Multivitamin Tablet PO 09/16/24 16:59 1700 CYNDI Ondansetron HCl 4 mg 08/16/24 18:09 Ondansetron 4mg/2ml Vial IV 09/15/24 18:08 Q8HP PRN Nausea Potassium Chloride 40 meq 08/17/24 07:00 08/17/24 06:53 Potassium Chloride 20meq Tab PO 08/17/24 11:01 40 meq Q4H CYNDI Administration Sodium Chloride 10 ml 08/16/24 18:12 Sodium Chloride 0.9% 10ml Vial IV 09/15/24 18:11 NEEDED PRN to Dilute Lorazepam inj Thiamine HCl 100 mg 08/16/24 18:10 08/17/24 08:35 Thiamine 100mg Tablet PO 09/15/24 18:09 100 mg DAILY CYNDI Administration Zolpidem Tartrate 5 mg 08/16/24 18:46 Zolpidem Tartrate 5 Mg Tablet PO 09/15/24 18:45 HSP PRN Insomnia Discontinued Medications Generic Name Dose Route Start Last Admin Trade Name Freq PRN Reason Stop Dose Admin Folic Acid 1 mg 08/16/24 13:00 08/16/24 13:15 Folic Acid 1mg Tablet PO 08/16/24 13:01 1 mg ONCE ONE Administration Sodium Chloride 1,000 mls @ 999 mls/hr 08/16/24 12:19 08/16/24 12:49 Sod Chlor 0.9% 1000ml Bag IV 08/16/24 13:19 999 mls/hr .Q1H1M ONE Administration Magnesium Sulfate 2 gm/ 1,015 mls @ 333 mls/hr 08/16/24 13:00 08/16/24 13:15 Thiamine HCl 100 mg/ IV 08/16/24 16:02 333 mls/hr Multivitamins 10 ml/ Lactated ONCE ONE Administration Ringer's Nicotine 21 mg 08/16/24 13:50 08/16/24 13:54 Nicotine 21mg/24hr Patch TD 08/16/24 13:51 21 mg ONCE ONE Administration Ondansetron HCl 4 mg 08/16/24 12:20 08/16/24 12:49 Ondansetron 4mg/2ml Vial IV 08/16/24 12:21 4 mg ONCE ONE Administration Phenobarbital Sodium 260 mg 08/16/24 12:21 08/16/24 12:50 Phenobarbital Sod 65mg/Ml Inj IV 08/16/24 12:22 260 mg ONCE ONE Administration Sodium Chloride 10 ml 08/16/24 12:19 Sodium Chloride 0.9% 10ml Vial IV 09/15/24 12:18 NEEDED PRN to Dilute Lorazepam inj ORDERS Category Date Time Status Consult Paper Bag Inspector [CONS] Routine Cons 08/16/24 16:55 Active Activated Partial Thrombo Time Stat Lab 08/16/24 12:14 Completed Complete Blood Count Auto Diff Stat Lab 08/16/24 12:14 Completed Comprehensive Metabolic Panel Stat Lab 08/16/24 12:14 Completed Drug Screen,Urine Stat Lab 08/16/24 12:14 Completed Ethyl Alcohol Stat Lab 08/16/24 12:14 Completed Lactic Acid Stat Lab 08/16/24 14:40 Completed Lipase Stat Lab 08/16/24 12:14 Completed Magnesium Stat Lab 08/16/24 12:14 Completed Phosphorous Stat Lab 08/16/24 12:14 Completed Prothrombin Time INR Routine Lab 08/16/24 12:14 Completed Medical Decision Narrative: 34-year-old male presents emergency department with alcohol withdrawal symptomatology, further diagnose include not limited to acute liver failure, alcohol withdrawal, alcohol withdrawal hallucinations, delirium, metabolic encephalopathy, other substance disorder, cardiac arrhythmia, electrolyte disturbance. Will obtain basic laboratory studies UDS, lipase, lactate, ethyl alcohol level, magnesium level, phosphorus level, coags, will give 1 L IV NS, folic acid, ALTE vitamin, thiamine, CIWA scale, EKG, will give 260 milligram IV phenobarb, due to initial CIWA of 19. CBC is elevated for elevated MCV at 103, thrombocytopenia at 103 PT is decreased at 9.7, INR 0.85, PTT within normal limits. CMP is notable for elevated transaminases at AST 167, ALT is up at 135, plasma serum alcohol level is 129. UDS is negative CMP is also notable for elevated lipase at 339. Lactic acid is within normal limits at 1.8 I discussed this patient's case with the on-call hospitalist at 3:35 PM, he is agreement with current admission plan/treatment plan for alcohol withdrawal, patient be admitted to PCU. I discussed need for admission with the patient at the bedside patient agreed with current admission plan/treatment plan. <Michael Eng MD - Last Filed: 08/17/24 10:36> Vital Signs: 08/16/24 12:20 08/16/24 12:59 08/16/24 13:30 Temperature 98.4 F Temperature Source Oral Pulse Rate 44 L 72 Pulse Rate [Left Radial] 81 Respiratory Rate 19 20 Blood Pressure 132/85 119/80 Blood Pressure [Right Arm] 134/78 Blood Pressure Mean [Right Arm] 96 Blood Pressure Source Blood Pressure Position 02 Sat by Pulse Oximetry 97 94 L 99 Oxygen Delivery Method 08/16/24 14:00 08/16/24 14:30 08/16/24 15:00 Temperature Temperature Source Pulse Rate 81 79 Pulse Rate [Left Radial] Respiratory Rate 13 20 18 Blood Pressure 124/75 117/81 101/63 L Blood Pressure [Right Arm] Blood Pressure Mean [Right Arm] Blood Pressure Source Blood Pressure Position 02 Sat by Pulse Oximetry 98 98 Oxygen Delivery Method Room Air Room Air 08/16/24 15:30 08/16/24 16:00 08/16/24 16:06 Temperature Temperature Source Pulse Rate 75 74 Pulse Rate [Left Radial] 93 H Respiratory Rate 14 21 Blood Pressure 134/90 137/84 Blood Pressure [Right Arm] Blood Pressure Mean [Right Arm] Blood Pressure Source Blood Pressure Position 02 Sat by Pulse Oximetry 98 96 98 Oxygen Delivery Method Room Air Room Air Room Air 08/16/24 17:00 08/16/24 17:03 Temperature 98.4 F Temperature Source Oral Pulse Rate 74 Pulse Rate [Left Radial] Respiratory Rate 21 Blood Pressure 137/84 Blood Pressure [Right Arm] Blood Pressure Mean [Right Arm] Blood Pressure Source Automatic Cuff Blood Pressure Position Sitting 02 Sat by Pulse Oximetry Oxygen Delivery Method Room Air Room Air Lab Data Lab Results 08/16/24 12:14: WBC 9.5, RBC 4.25 L, Hgb 14.5, Hct 40.8 L, MCV 96.0 H, MCH 34.1 H, MCHC 35.5 H, RDW 12.3, Plt Count 103 L, MPV 11.3 H, Neut % (Auto) 77.5, Lymph % (Auto) 11.3, [place] % (Auto) 9.5 H, Eos % (Auto) 0.8, Baso % (Auto) 0.6, Neut # (Auto) 7.4, Lymph # (Auto) 1.1, [place] # (Auto) 0.9, Eos # (Auto) 0.1, Baso # (Auto) 0.1, PT 9.7 L, INR 0.85 L, APTT 29.9, Sodium 140, Potassium 3.7, Chloride 104, Carbon Dioxide 32 H, Anion Gap 7.7, BUN 6 L D, Creatinine 0.80, Estimated GFR 109, Est GFR ( Amer) 132, Glucose 108 H, Calcium 9.1, Phosphorus 2.6, Magnesium 1.8, Total Bilirubin 0.8, AST 167 H, ALT 135 H, Alkaline Phosphatase 83, Total Protein 7.0, Albumin 4.5, Globulin 2.5, Albumin/Globulin Ratio 1.8, L ipase 339 H, Urine Opiates Screen Negative, Urine Methadone Screen Negative, Ur Barbituates Screen Negative, Ur Phencyclidine Scrn Negative, Ur Amphetamines Screen Negative, U Benzodiazepines Scrn Negative, Urine Cocaine Screen Negative, U Marijuana (THC) Screen Negative, Plasma/Serum Alcohol 129 H 08/16/24 14:40: Lactate 1.8 Orders (Tests/Meds): ED MEDICATIONS Generic Name Dose Route Start Last Admin Trade Name Freq PRN Reason Stop Dose Admin Acetaminophen 650 mg 08/16/24 18:09 Acetaminophen 325mg Tab PO 09/15/24 18:08 Q4HP PRN Fever or Mild Pain (1-3) Enoxaparin Sodium 40 mg 08/17/24 09:00 08/17/24 08:35 Enoxaparin 40mg/0.4ml Syringe SUBCUT 09/16/24 08:59 40 mg DAILY CYNDI Administration Folic Acid 1 mg 08/17/24 09:00 08/17/24 08:35 Folic Acid 1mg Tablet PO 09/16/24 08:59 1 mg DAILY CYNDI Administration Lorazepam 2 mg 08/16/24 18:12 Lorazepam 2mg/Ml Vial IV 09/15/24 18:11 Q1HP PRN CIWA >16 Lorazepam 1 mg 08/16/24 18:12 08/16/24 18:33 Lorazepam 1mg Tablet PO 09/15/24 18:11 1 mg Q1HP PRN Administration CIWA Score 8-15 Lorazepam 1 mg 08/16/24 18:12 08/17/24 02:00 Lorazepam 1mg Tablet PO 09/15/24 18:11 1 mg Q6HP PRN Administration Ciwa 2-7, Insomnia Multivitamins 1 each 08/17/24 17:00 Multivitamin Tablet PO 09/16/24 16:59 1700 CYNDI Ondansetron HCl 4 mg 08/16/24 18:09 Ondansetron 4mg/2ml Vial IV 09/15/24 18:08 Q8HP PRN Nausea Potassium Chloride 40 meq 08/17/24 07:00 08/17/24 06:53 Potassium Chloride 20meq Tab PO 08/17/24 11:01 40 meq Q4H CYNDI Administration Sodium Chloride 10 ml 08/16/24 18:12 Sodium Chloride 0.9% 10ml Vial IV 09/15/24 18:11 NEEDED PRN to Dilute Lorazepam inj Thiamine HCl 100 mg 08/16/24 18:10 08/17/24 08:35 Thiamine 100mg Tablet PO 09/15/24 18:09 100 mg DAILY CYNDI Administration Zolpidem Tartrate 5 mg 08/16/24 18:46 Zolpidem Tartrate 5 Mg Tablet PO 09/15/24 18:45 HSP PRN Insomnia Discontinued Medications Generic Name Dose Route Start Last Admin Trade Name Freq PRN Reason Stop Dose Admin Folic Acid 1 mg 08/16/24 13:00 08/16/24 13:15 Folic Acid 1mg Tablet PO 08/16/24 13:01 1 mg ONCE ONE Administration Sodium Chloride 1,000 mls @ 999 mls/hr 08/16/24 12:19 08/16/24 12:49 Sod Chlor 0.9% 1000ml Bag IV 08/16/24 13:19 999 mls/hr .Q1H1M ONE Administration Magnesium Sulfate 2 gm/ 1,015 mls @ 333 mls/hr 08/16/24 13:00 08/16/24 13:15 Thiamine HCl 100 mg/ IV 08/16/24 16:02 333 mls/hr Multivitamins 10 ml/ Lactated ONCE ONE Administration Ringer's Nicotine 21 mg 08/16/24 13:50 08/16/24 13:54 Nicotine 21mg/24hr Patch TD 08/16/24 13:51 21 mg ONCE ONE Administration Ondansetron HCl 4 mg 08/16/24 12:20 08/16/24 12:49 Ondansetron 4mg/2ml Vial IV 08/16/24 12:21 4 mg ONCE ONE Administration Phenobarbital Sodium 260 mg 08/16/24 12:21 08/16/24 12:50 Phenobarbital Sod 65mg/Ml Inj IV 08/16/24 12:22 260 mg ONCE ONE Administration Sodium Chloride 10 ml 08/16/24 12:19 Sodium Chloride 0.9% 10ml Vial IV 09/15/24 12:18 NEEDED PRN to Dilute Lorazepam inj ORDERS Category Date Time Status Consult Paper Bag Inspector [CONS] Routine Cons 08/16/24 16:55 Active Activated Partial Thrombo Time Stat Lab 08/16/24 12:14 Completed Complete Blood Count Auto Diff Stat Lab 08/16/24 12:14 Completed Comprehensive Metabolic Panel Stat Lab 08/16/24 12:14 Completed Drug Screen,Urine Stat Lab 08/16/24 12:14 Completed Ethyl Alcohol Stat Lab 08/16/24 12:14 Completed Lactic Acid Stat Lab 08/16/24 14:40 Completed Lipase Stat Lab 08/16/24 12:14 Completed Magnesium Stat Lab 08/16/24 12:14 Completed Phosphorous Stat Lab 08/16/24 12:14 Completed Prothrombin Time INR Routine Lab 08/16/24 12:14 Completed ECG Data Tracing #1: I reviewed this ECG and interpreted as documented below: (Sinus rhythm 70 bpm with [place] interval 100, QRS 102, QTc 445. Normal axis, no acute ischemic change and unremarkable exam) Medical Decision Narrative: 34-year-old male presents emergency department with alcohol withdrawal symptomatology, further diagnose include not limited to acute liver failure, alcohol withdrawal, alcohol withdrawal hallucinations, delirium, metabolic encephalopathy, other substance disorder, cardiac arrhythmia, electrolyte disturbance. Will obtain basic laboratory studies UDS, lipase, lactate, ethyl alcohol level, magnesium level, phosphorus level, coags, will give 1 L IV NS, folic acid, ALTE vitamin, thiamine, CIWA scale, EKG, will give 260 milligram IV phenobarb, due to initial CIWA of 19. CBC is elevated for elevated MCV at 103, thrombocytopenia at 103 PT is decreased at 9.7, INR 0.85, PTT within normal limits. CMP is notable for elevated transaminases at AST 167, ALT is up at 135, plasma serum alcohol level is 129. UDS is negative CMP is also notable for elevated lipase at 339. Lactic acid is within normal limits at 1.8 I discussed this patient's case with the on-call hospitalist at 3:35 PM, he is agreement with current admission plan/treatment plan for alcohol withdrawal, patient be admitted to PCU. I discussed need for admission with the patient at the bedside patient agreed with current admission plan/treatment plan. I was consulted by the VERONICA, and we discussed the complexity of the problems being addressed. I approved the treatment and management plan for this patient's care in the Emergency Department, thus performing a substantive portion of the medical decision making. Michael Eng MD Critical Care <CLIFTON Del Rosario - Last Filed: 08/16/24 17:02> Critical Care Time Critical Care Time: No <Michael Eng MD - Last Filed: 08/17/24 10:36> Critical Care Time Critical Care Time: Yes (toxicologic) Attestation: On 08/16/24, the high probability of a clinically significant, sudden or life threatening deterioration of the following system(s) required my full and direct attention, intervention and personal management. The time I documented below is in addition to time spent performing reported procedures but includes the following listed in this critical care notation. Total Time Total Critical Care Time: 40
[2024-08-16 12:31] LABS: Albumin Level 4.5 g/dl (3.5-5.0); Chloride 104 mmol/L (98-107); Potassium 3.7 mmoL/L (3.5-5.1); Sodium 140 mmol/L (136-145)
[2024-08-16 12:33] LABS: Alanine Aminotransferase 135 U/L (12-78); Anion Gap 7.7 mEq/L (5-15); Aspartate Amino Transferase 167 U/L (17-59); Blood Urea Nitrogen 6 mg/dl (9-20); Carbon Dioxide 32 mmol/L (22.0-30.0); Estimated Glomerular Filt Rate 109 ml/min (>60); Ethyl Alcohol 129 mg/dl (0-10); GFR (African American) 132 ML/MIN (>60); Lipase 339 U/L (23-300)
[2024-08-16 12:35] LABS: Activated Partial Thrombo Time 29.9 seconds (22.8-30.6)
--- NOTE | 2024-08-16 12:35 | ECG_ITS ---
APPROVED REPORT Exam: Resting ECG HR:70 bpm ECG Measurements Heart Rate 70 AXES TX 100 P 39 QRSd 102 QRS 81 QT 424 T 78 QTc 445 Conclusion Sinus rhythm Electronically signed by : FELECIA MÉNDEZ, 08/17/2024 07:30:03
[2024-08-16 12:36] LABS: INR 0.85 (0.9-1.1); Prothrombin Time 9.7 seconds (10.1-12.5)
[2024-08-16 12:39] LABS: Barbiturates Screen,Urine Negative ng/ml (<200)
[2024-08-16 12:40] LABS: Amphetamine/Metha Screen,Urine Negative ng/ml (<1000); Benzodiazepines Screen,Urine Negative ng/ml (<200)
[2024-08-16 12:41] LABS: Cannabinoid Screen,Urine Negative ng/ml (<50)
[2024-08-16 12:42] LABS: Cocaine Screen,Urine Negative ng/ml (<300); Methadone Screen,Urine Negative ng/ml (<300)
[2024-08-16 12:43] LABS: Opiate Screen,Urine Negative ng/ml (<300); Phencyclidine Screen,Urine Negative ng/ml (<25)
[2024-08-16] MEDS: 0.9 % SODIUM CHLORIDE 1000ML 1,000 ML 999 ML IV (12:49)
[2024-08-16] MEDS: ONDANSETRON 4MG/2ML VIAL 4 MG IV (12:49)
[2024-08-16] MEDS: PHENobarbital SOD 65MG/ML INJ 260 MG IV (12:50)
[2024-08-16 12:51] LABS: Albumin/Globulin Ratio 1.8 (1.1-1.8); Alkaline Phosphatase 83 U/L (38-126); Bilirubin,Total 0.8 mg/dl (0.2-1.3); Calcium 9.1 mg/dl (8.4-10.2); Globulin 2.5 g/dL (1.3-3.2); Glucose 108 mg/dl (74-100); Phosphorous 2.6 mg/dl (2.5-4.5)
[2024-08-16 12:52] LABS: Magnesium 1.8 mg/dl (1.6-2.3)
[2024-08-16] MEDS: FOLIC ACID 1MG TABLET 1 MG PO (13:15)
[2024-08-16] MEDS: MAGNESIUM SULFATE 2 GM, THIAMINE HCL 100 MG, MVI, ADULT NO.1 WITH VIT K 10 ML in LACTAT... IV (13:15)
[2024-08-16] MEDS: NICOTINE 21MG/24HR PATCH 21 MG TD (13:54)
--- NOTE | 2024-08-16 13:54 | PC.NURSE ---
spoke to juan hayden about attivan administer, catracho reports pt received phenobarbital, give it a little bit more time to work and then reassess.
--- NOTE | 2024-08-16 14:59 | PC.NURSE ---
CIWA score reassessed on pt. new score documented, shanique hayden notified, no new orders.
[2024-08-16 15:02] LABS: Lactic Acid 1.8 mmol/L (0.7-2.1)
--- NOTE | 2024-08-16 16:34 | PC.NURSE ---
report called to sari in ICU
--- NOTE | 2024-08-16 18:00 | PC.NURSE ---
pt ambulated to the bathroom for a BM. pt was asked to use a bedside commode or bedpan due to being in seizure precautions and tremors. pt refused and was insistent on ambulating. pt tolerated well
[2024-08-16] MEDS: LORazepam 1MG TABLET 1 MG PO (18:33)
[2024-08-16] MEDS: THIAMINE 100MG TABLET 100 MG PO (18:42)
--- NOTE | 2024-08-16 18:47 | P.HP_ITS ---
<Statement entered by Bong Ramirez MD - 08/24/24 11:02> I personally examined patient and agree with the plan of care outlined by the WATER METER READER. History of Present Illness *Admission Date: 08/16/24 *Reason for visit:: Alcohol withdrawal *History of present illness: This is a 34-year-old male who has a past medical history significant for alcohol dependence who presents with a chief complaint of alcohol withdrawal. Due to patient's symptoms, he presented to the emergency room for evaluation. While in emergency room, patient was noted to be very tremulous, restless, and anxious. Due to these findings, patient is being admitted for further management. During my evaluation of the patient, patient still has some significant tremors noted while at rest and during motion. Patient voices that his last drink today was 3 shots of fireball. He states that he normally drinks approximately greater than 1/5 of the steals daily. He admits also that he is wanting to seek treatment to help reduce his dependency on alcohol. Nursing staff shared with me that patient states he has been having trouble sleeping at night and this is the reason why he drinks often. He is currently denying any chest pain, lightheadedness, abdominal pain, dizziness, fever, chills, rigors, nausea, vomiting, or diarrhea. Pertinent vitals obtained include a red blood cell count of 4.25, hematocrit of 40.8, platelet count of 103,Bicarb 32, glucose of 108, AST of 167, ALT of 135, serum alcohol level of 129, and lipase of 339. [facility] Disclaimer: The information contained in this section may have been updated after the patient was seen, as this information can be updated by other users. 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) No significant past medical history Social History Smoking Status: Current every day smoker tobacco type: cigarettes packs per day: 14 and smokeless tobacco second hand exposure: Yes alcohol intake: current current occupational status: unemployed and other Travel in the last 8 weeks: None Have you lived/traveled outside [place] in past 30 days?: No Contact w/someone who lives/traveled outside US past 30 days?: No Exposure to someone with infectious disease in past 14 days?: No Do you have a fever (greater than 100.4 F or 38 C)?: No Have you tested positive for COVID-19: No Exposed to someone with COVID-19 in past 14 days?: No Do you have a sore throat?: No Do you have a cough?: No Do you have any weakness?: No Do you have any diarrhea?: No Are you experiencing any unusual bleeding?: No Do you have any muscle aches/pain?: No Do you have any abdominal pain?: No Are you experiencing loss of taste or smell?: No Other 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 Have you received the Flu Vaccine for this season: No Have you received the Pneumonia Vaccine: No Review of Systems Review of Systems Review of systems:: pertinent systems reviewed and negative unless documented below Constitutional Constitutional: Reports system reviewed and no additional complaints, except as documented Eyes Eyes: Reports system reviewed and no additional complaints, except as documented ENT Ears, Nose, Mouth, and Throat: Reports system reviewed and no additional complaints, except as documented *Cardiovascular Cardiovascular: Reports system reviewed and no additional complaints, except as documented *Respiratory Respiratory: Reports system reviewed and no additional complaints, except as documented *Gastrointestinal Gastrointestinal: Reports system reviewed and no additional complaints, except as documented *Genitourinary Genitourinary: Reports system reviewed and no additional complaints, except as documented *Musculoskeletal Musculoskeletal: Reports system reviewed and no additional complaints, except as documented Integumentary/Breasts Skin/Breast: Reports system reviewed and no additional complaints, except as documented *Neurologic Neurologic: Reports system reviewed and no additional complaints, except as documented Psychiatric Psychiatric: Reports anxiety Comments: Alcohol dependency Endocrine Endocrine: Reports system reviewed and no additional complaints, except as documented Hematologic/Lymphatic Hematologic/Lymphatic: Reports system reviewed and no additional complaints, except as documented Allergic/Immunologic Allergic/Immunologic: Reports system reviewed and no additional complaints, except as documented Meds Home Medications and Allergies Home Medications ?Medication ?Instructions ?Recorded ?Confirmed ?Type ondansetron 4 mg disintegrating 4 mg PO Q8H PRN Nausea #12 tabs 10/14/23 Rx tablet clotrimazole 10 mg jia 10 mg mucous membrane QID 7 days 07/25/24 Rx #28 tabs chlordiazepoxide HCl 25 mg capsule See Rx Instructions .Route 08/15/24 Rx .COMPLEX #15 caps New Prescriptions to Start Prescriptions: Allergies Allergy/AdvReac Type Severity Reaction Status Date / Time Penicillins Allergy Rash Verified 08/16/24 17:35 Exam Data for Last 24 hours Vital signs and Labs for Last 24 Hours: Temp Pulse Resp BP Pulse Ox O2 Del Method 98.6 F 72 20 137/95 H 95 Room Air 08/16/24 17:15 08/16/24 17:15 08/16/24 17:15 08/16/24 17:15 08/16/24 17:15 08/16/24 17:15 Laboratory Results - last 24 hr 08/16/24 12:14: WBC 9.5, RBC 4.25 L, Hgb 14.5, Hct 40.8 L, MCV 96.0 H, MCH 34.1 H, MCHC 35.5 H, RDW 12.3, Plt Count 103 L, MPV 11.3 H, Neut % (Auto) 77.5, Lymph % (Auto) 11.3, [place] % (Auto) 9.5 H, Eos % (Auto) 0.8, Baso % (Auto) 0.6, Neut # (Auto) 7.4, Lymph # (Auto) 1.1, [place] # (Auto) 0.9, Eos # (Auto) 0.1, Baso # (Auto) 0.1, PT 9.7 L, INR 0.85 L, APTT 29.9, Sodium 140, Potassium 3.7, Chloride 104, Carbon Dioxide 32 H, Anion Gap 7.7, BUN 6 L D, Creatinine 0.80, Estimated GFR 109, Est GFR ( Amer) 132, Glucose 108 H, Calcium 9.1, Phosphorus 2.6, Magnesium 1.8, Total Bilirubin 0.8, AST 167 H, ALT 135 H, Alkaline Phosphatase 83, Total Protein 7.0, Albumin 4.5, Globulin 2.5, Albumin/Globulin Ratio 1.8, Lipase 339 H, Urine Opiates Screen Negative, Urine Methadone Screen Negative, Ur Barbituates Screen Negative, Ur Phencyclidine Scrn Negative, Ur Amphetamines Screen Negative, U Benzodiazepines Scrn Negative, Urine Cocaine Screen Negative, U Marijuana (THC) Screen Negative, Plasma/Serum Alcohol 129 H 08/16/24 14:40: Lactate 1.8 I & O for Last 24 hours: Intake & Output 08/13/24 08/14/24 08/15/24 03/25/25 23:59 23:59 23:59 23:59 Intake Total 240 / 240 Balance 240 / 240 Weight 72.631 kg Constitutional Constitutional: no acute distress and thin *Routine HEENT Exam Head: Present normocephalic and atraumatic Eye: Present EOMI, PERRL and normal accommodation ENT: Present mucous membranes moist *Routine Neck Exam Neck: Present supple, full ROM and trachea midline *Routine Respiratory Exam Respiratory: Present diminished air movement, normal respiratory effort, able to speak in complete sentences and symmetric chest movement *Routine Cardiovascular Exam Cardiovascular: Present RRR, Normal S1 and Normal S2 *Routine Abdominal Exam Abdominal: Present soft and normoactive bowel sounds *Routine Rectal Exam Rectal:: deferred *Routine Genitalia Exam Genitalia:: deferred *Routine Extremities Exam Extremities: Present full ROM, pulses intact and normal capillary refill Routine Back/Spine/Pelvis Exam Back/Spine: Present full ROM *Routine Skin Exam Skin: Present intact, dry, warm and normal turgor *Routine Neurological Exam Neurological: Present alert, oriented X3, CN II-XII intact and normal speech Routine Psychiatric Exam Psychiatric: Present normal affect, normal thought process and anxious H&P: Result Impressions 34-year-old male who presents with a chief complaint of alcohol withdrawal symptoms. He did present the day prior was offered admission but left AGAINST MEDICAL ADVICE. He was given Librium taper did not take to taper but continued to drink. He Cort[place] presents requesting help for alcohol withdrawal notably patient is very tremulous. Assessment and Plan *Assessment and plan (1) Alcohol withdrawal: Status: Acute Qualifiers: Complication of substance-induced condition: uncomplicated Qualified Code(s): F10.930 - Alcohol use, unspecified with withdrawal, uncomplicated Category: Medical Code(s): F10.939 - Alcohol use, unspecified with withdrawal, unspecified (2) Transaminitis: Status: Acute Category: Medical Code(s): R74.01 - Elevation of levels of liver transaminase levels (3) Elevated lipase: Status: Acute Category: Medical Code(s): R74.8 - Abnormal levels of other serum enzymes (4) Thrombocytopenia: Status: Acute Category: Medical Code(s): D69.6 - Thrombocytopenia, unspecified Plan Assessment: EtOH withdrawal Transaminitis Elevated lipase Thrombocytopenia EtOH intoxication Plan: Admit patient to the stepdown unit on telemetry Ambulate as tolerated Will implement CIWA protocol Vital signs every 4 hours Regular diet CBC/BMP daily Magnesium daily Obtain lipid panel 40 mg Lovenox subcu daily for DVT prophylax 1 mg of folic acid daily Multivitamin daily Nicotine patch 4 mg Zofran IV push. Hours. Nausea from 100 mg of thiamine p.o. daily Full code I have discussed this case with attending physician Dr. Ramirez and I look forward to more input
[2024-08-17] VITALS (9 sets, daily range): BP systolic 104–146; BP diastolic 60–92; PULSE 59–90; RESP 16–20; TEMP 36.6–37.1; O2SAT 91–98; BMI 20.7
--- NOTE | 2024-08-17 01:12 | PC.NURSE ---
pt refused ativan at this time
[2024-08-17] MEDS: LORazepam 1MG TABLET 1 MG PO ×3 (02:00→22:57)
[2024-08-17 05:43] LABS: Basophils # 0.1 K/mm3 (0-0.2); Basophils % 0.8 % (0.1-2.0); Eosinophils # 0.2 K/mm3 (0.0-0.4); Eosinophils % 3.6 % (0.1-12.0); Hematocrit 38.5 % (42.0-52.0); Hemoglobin 13.5 g/dL (14.1-18.0); Lymphocytes # 1.3 K/mm3 (0.7-4.5); Mean Corpuscular HGB Conc 35.1 g/dL (31.8-35.4); Mean Corpuscular Hemoglobin 33.8 pg (27.0-31.2); Mean Corpuscular Volume 96.3 fl (80-94); Mean Platelet Volume 12.1 fl (7.4-10.4); Monocytes # 0.7 K/mm3 (0.1-1.0); Monocytes % 10.3 % (1.7-9.3); Neutrophils # 4.1 K/mm3 (1.8-7.8); Platelet Count 86 K/mm3 (142-424); White Blood Count 6.3 K/mm3 (4.8-10.8)
[2024-08-17 05:47] LABS: Albumin Level 3.8 g/dl (3.5-5.0); Chloride 102 mmol/L (98-107)
[2024-08-17 05:48] LABS: Potassium 3.3 mmoL/L (3.5-5.1); Sodium 133 mmol/L (136-145)
[2024-08-17 05:50] LABS: Alanine Aminotransferase 118 U/L (12-78); Albumin/Globulin Ratio 1.6 (1.1-1.8); Alkaline Phosphatase 91 U/L (38-126); Anion Gap 5.3 mEq/L (5-15); Aspartate Amino Transferase 144 U/L (17-59); Bilirubin,Total 1.3 mg/dl (0.2-1.3); Blood Urea Nitrogen 5 mg/dl (9-20); Carbon Dioxide 29 mmol/L (22.0-30.0); Creatinine Clearance Estimated 132 mL/min (50-200); Estimated Glomerular Filt Rate 109 ml/min (>60); GFR (African American) 132 ML/MIN (>60); Globulin 2.4 g/dL (1.3-3.2); Total Protein,Serum 6.2 g/dl (6.3-8.2)
[2024-08-17 05:51] LABS: Calcium 8.6 mg/dl (8.4-10.2); Cholesterol 186 mg/dl (140-200); Glucose 89 mg/dl (74-100); Magnesium 1.9 mg/dl (1.6-2.3); Triglycerides 63 mg/dl (30-150); VLDL Cholesterol 13 mg/dL (0-40)
[2024-08-17 06:01] LABS: Chol/HDL Ratio 1.5 (1-3.5); HDL Cholesterol 127 mg/dl (40-60)
[2024-08-17 06:02] LABS: Direct LDL Cholesterol 32.98 mg/dL (100-129)
[2024-08-17] MEDS: POTASSIUM CHLORIDE 20MEQ TAB 40 MEQ PO ×2 (06:53→11:51)
[2024-08-17] MEDS: ENOXAPARIN 40MG/0.4ML SYRINGE 40 MG SUBCUT (08:35)
[2024-08-17] MEDS: FOLIC ACID 1MG TABLET 1 MG PO (08:35)
[2024-08-17] MEDS: THIAMINE 100MG TABLET 100 MG PO (08:35)
[2024-08-17 08:47] LABS: Vitamin B12 789 pg/mL (239-931)
--- NOTE | 2024-08-17 12:44 | PC.NURSE ---
pt leaving ICU unit @1244 via wheelchair.
--- NOTE | 2024-08-17 16:21 | PC.NURSE ---
AOX4, LAST CIWA SCORE 5. MEDICATED WITH PO DOSE ATIVAN PER MAR. SEIZURE PADS IN PLACE. FAMILY AT BEDSIDE FOR DURATION OF SHIFT.
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
[2024-08-17] MEDS: ZOLPIDEM TARTRATE 5 MG TABLET PO (20:34)
--- NOTE | 2024-08-17 21:49 | P.PN_ITS ---
Subjective *Date: 08/17/24 *Time: 21:49 Interval history: Patient doing well today, see was less than 8. Downgraded to MedSurg. Continues to have intermittent anxiety/tremors/hallucinations, treating with Ativan as needed. Interest in recovery Works, peer support and case management assisting with that. Exam Data for Last 24 hours Vital signs and Labs for Last 24 Hours: Temp Pulse Resp BP Pulse Ox O2 Del Method 98.3 F 80 16 146/75 H 98 Room Air 08/17/24 20:00 08/17/24 20:00 08/17/24 20:00 08/17/24 20:00 08/17/24 20:00 08/17/24 20:00 Laboratory Results - last 24 hr 08/17/24 05:00: WBC 6.3 D, RBC 4.00 L, Hgb 13.5 L, Hct 38.5 L, MCV 96.3 H, MCH 33.8 H, MCHC 35.1, RDW 12.0, Plt Count 86 L, MPV 12.1 H, Neut % (Auto) 65.0, Lymph % (Auto) 20.0, [place] % (Auto) 10.3 H, Eos % (Auto) 3.6, Baso % (Auto) 0.8, Neut # (Auto) 4.1, Lymph # (Auto) 1.3, [place] # (Auto) 0.7, Eos # (Auto) 0.2, Baso # (Auto) 0.1, Sodium 133 L, Potassium 3.3 L, Chloride 102, Carbon Dioxide 29, Anion Gap 5.3, BUN 5 L, Creatinine 0.80, Estimated Creat Clear 132, Estimated GFR 109, Est GFR ( Amer) 132, Glucose 89, Calcium 8.6, Magnesium 1.9, Total Bilirubin 1.3, AST 144 H, ALT 118 H, Alkaline Phosphatase 91, Total Protein 6.2 L, Albumin 3.8 D, Globulin 2.4, Albumin/Globulin Ratio 1.6, Triglycerides 63, Cholesterol 186, LDL Cholesterol Direct 32.98 L, VLDL Cholesterol 13, HDL Cholesterol 127 H, Cholesterol/HDL Ratio 1.5, Vitamin B12 789 I & O for Last 24 hours: Intake & Output 08/14/24 08/15/24 08/16/24 08/17/24 23:59 23:59 23:59 23:59 Intake Total 345 / 345 1255 / 1255 Output Total 0 / 0 Balance 345 / 345 1254 / 1254 Weight 72.631 kg 73.21 kg Constitutional Constitutional: no acute distress *Routine HEENT Exam Head: Present normocephalic Eye: Present EOMI and PERRL ENT: Present mucous membranes moist *Routine Neck Exam Neck: Present supple; Absent lymphadenopathy *Routine Respiratory Exam Respiratory: Present CTA bilaterally *Routine Cardiovascular Exam Cardiovascular: Present RRR *Routine Abdominal Exam Abdominal: Present soft and normoactive bowel sounds; Absent tenderness *Routine Extremities Exam Extremities: Absent cyanosis, clubbing or edema *Routine Skin Exam Skin: Present warm; Absent rash *Routine Neurological Exam Neurological: Present alert and oriented X3 Assessment and Plan *Assessment and plan (1) Alcohol withdrawal: Status: Acute Qualifiers: Complication of substance-induced condition: uncomplicated Qualified Code(s): F10.930 - Alcohol use, unspecified with withdrawal, uncomplicated Category: Medical Code(s): F10.939 - Alcohol use, unspecified with withdrawal, unspecified Plan Rodney Pratt is a 34-year-old pleasant male who presented with tremors and was admitted for alcohol withdrawal. #Alcohol use disorder #Alcohol withdrawal ? Patient states he drinks a little more than 1/5 a day, but is very motivated to quit drinking as he has 3 kids. He is interested in inpatient rehab. ? CIWA's today have been less than 10, continue Ativan as needed. ? Peer support and case management consulted, will coordinate inpatient rehab at [facility]. ? Will consider naltrexone on discharge. ? Continue rally pack at 125 mL/h, dehydrated today. ? Continue multivitamins. ? Follow-up B12, folate levels. Full code DVT prophylaxis: Lovenox 40 mg
[2024-08-18] VITALS: BP 121/83; PULSE 82; RESP 16; TEMP 36.7; O2SAT 98
--- NOTE | 2024-08-18 03:23 | PC.NURSE ---
Pt resting in low locked bed with eyes open. Reports improved anxiety after receiving ativan earlier. Pt is alert and oriented. Seizure precautions in place. 20 LAC. Saline locked. Room air.
[2024-08-18 04:00] VITALS: BP 134/90; PULSE 71; RESP 16; TEMP 36.8; O2SAT 98; BMI 21.1
[2024-08-18] MEDS: LORazepam 1MG TABLET 1 MG PO (05:48)
[2024-08-18 06:45] LABS: Basophils # 0.1 K/mm3 (0-0.2); Eosinophils # 0.3 K/mm3 (0.0-0.4); Eosinophils % 5.1 % (0.1-12.0); Hematocrit 37.7 % (42.0-52.0); Hemoglobin 13.5 g/dL (14.1-18.0); Lymphocytes # 1.4 K/mm3 (0.7-4.5); Lymphocytes % 22.7 % (10-50); Mean Corpuscular HGB Conc 35.8 g/dL (31.8-35.4); Mean Corpuscular Hemoglobin 33.8 pg (27.0-31.2); Mean Corpuscular Volume 94.5 fl (80-94); Mean Platelet Volume 12.2 fl (7.4-10.4); Monocytes # 0.6 K/mm3 (0.1-1.0); Monocytes % 9.5 % (1.7-9.3); Neutrophils # 3.8 K/mm3 (1.8-7.8); Neutrophils % 61.5 % (37.0-80.0); Platelet Count 93 K/mm3 (142-424); Red Blood Count 3.99 M/mm3 (4.60-6.20); Red Cell Distribution Width 11.3 % (11.5-17.5); White Blood Count 6.1 K/mm3 (4.8-10.8)
[2024-08-18 06:50] LABS: Alanine Aminotransferase 142 U/L (12-78); Albumin Level 3.9 g/dl (3.5-5.0); Albumin/Globulin Ratio 1.6 (1.1-1.8); Alkaline Phosphatase 75 U/L (38-126); Anion Gap 13.4 mEq/L (5-15); Aspartate Amino Transferase 186 U/L (17-59); Bilirubin,Total 0.9 mg/dl (0.2-1.3); Blood Urea Nitrogen 6 mg/dl (9-20); Calcium 9.2 mg/dl (8.4-10.2); Carbon Dioxide 23 mmol/L (22.0-30.0); Chloride 103 mmol/L (98-107); Creatinine Clearance Estimated 135 mL/min (50-200); Estimated Glomerular Filt Rate 109 ml/min (>60); GFR (African American) 132 ML/MIN (>60); Globulin 2.5 g/dL (1.3-3.2); Glucose 94 mg/dl (74-100); Potassium 3.4 mmoL/L (3.5-5.1); Sodium 136 mmol/L (136-145); Total Protein,Serum 6.4 g/dl (6.3-8.2)
[2024-08-18 07:49] VITALS: BP 136/87; PULSE 94; RESP 16; TEMP 36.6; O2SAT 100
--- NOTE | 2024-08-18 08:10 | US_ITS ---
FINAL REPORT TECHNIQUE: Sonographic images of the right upper quadrant were obtained. CLINICAL HISTORY: Elevated LFTs, alcohol use FINDINGS: PANCREAS: Unremarkable. LIVER: Fatty infiltrated.. No focal hepatic lesion. Portal vein patent with normal directional flow. No intrahepatic biliary ductal dilatation. GALLBLADDER: Echogenic focus in the gallbladder on the nondependent wall is nonshadowing and favored to represent polyp. No gallstones.. No gallbladder wall thickening or pericholecystic fluid. COMMON DUCT: 4 mm. Normal for age. RIGHT KIDNEY: The right kidney measures 10.7 cm. There is no hydronephrosis, mass, or stone. FREE FLUID: None. IMPRESSION: Gallbladder polyp. Fatty liver. Reviewed, Interpreted and Dictated by Jovanna Crouch MD Transcribed by Mayra Arizmendi Authenticated and [facility]
[2024-08-18 08:25] LABS: Folate 9.31 ng/mL
[2024-08-18] MEDS: POTASSIUM CHLORIDE 20MEQ TAB 40 MEQ PO (09:28)
[2024-08-18] MEDS: FOLIC ACID 1MG TABLET 1 MG PO (09:28)
[2024-08-18] MEDS: THIAMINE 100MG TABLET 100 MG PO (09:28)
[2024-08-18] MEDS: MVI, ADULT NO.1 WITH VIT K 10 ML, THIAMINE HCL 100 MG, MAGNESIUM SULFATE 2 GM in LACTAT... 125 ML IV (09:32)
[2024-08-18 12:00] VITALS: BP 136/80; PULSE 64; RESP 18; TEMP 36.6; O2SAT 96
--- NOTE | 2024-08-18 12:27 | EXP.DC.SUM ---
General Admission date:: 08/16/24 HPI HPI HPI: This is a 34-year-old male who has a past medical history significant for alcohol dependence who presents with a chief complaint of alcohol withdrawal. Due to patient's symptoms, he presented to the emergency room for evaluation. While in emergency room, patient was noted to be very tremulous, restless, and anxious. Due to these findings, patient is being admitted for further management. During my evaluation of the patient, patient still has some significant tremors noted while at rest and during motion. Patient voices that his last drink today was 3 shots of fireball. He states that he normally drinks approximately greater than 1/5 of the steals daily. He admits also that he is wanting to seek treatment to help reduce his dependency on alcohol. Nursing staff shared with me that patient states he has been having trouble sleeping at night and this is the reason why he drinks often. He is currently denying any chest pain, lightheadedness, abdominal pain, dizziness, fever, chills, rigors, nausea, vomiting, or diarrhea. Pertinent vitals obtained include a red blood cell count of 4.25, hematocrit of 40.8, platelet count of 103,Bicarb 32, glucose of 108, AST of 167, ALT of 135, serum alcohol level of 129, and lipase of 339. Hospital Course Hospital Course Hospital Course: Rodney Pratt is a 34-year-old pleasant male who presented with tremors and was admitted for alcohol withdrawal. #Alcohol use disorder #Alcohol withdrawal #Alcohol hepatitis #Alcoholic pancreatitis ? Patient states he drinks a little more than 1/5 a day, but is very motivated to quit drinking as he has 3 kids. He is interested in outpatient rehab with [facility]. ? Clinically improved with rally pack and Ativan as needed, CIWA essentially normal. ? Peer support and case management consulted, patient has [facility] appointment on day of discharge which patient will attend. ? Extensively counseled on alcohol withdrawal and different modalities to help reduce cravings. ? Discharged with naltrexone 50 mcg daily, gabapentin 300 to 600 mg nightly for withdrawals and sleep. Patient states he struggles to sleep when he does not drink. ? LFTs stabilized AST/ALT 188/142. Bilirubin normal. No jaundice. Given prednisone 40 mg today, discharged with 4 more days. No tenderness. ? Liver ultrasound shows fatty liver. ? B12, folate levels normal. ? Will follow-up with [facility] regularly to help with alcohol cessation. Total time spent on discharge: 32 minutes on chart review, counseling, documentation, and direct care with patient. Exam Data for Last 24 hours Vital signs and Labs for Last 24 Hours: Temp Pulse Resp BP Pulse Ox O2 Del Method 98 F 94 H 16 136/87 100 Room Air 08/18/24 07:49 08/18/24 07:49 08/18/24 07:49 08/18/24 07:49 08/18/24 07:49 08/18/24 11:00 Laboratory Results - last 24 hr 08/18/24 05:30: WBC 6.1, RBC 3.99 L, Hgb 13.5 L, Hct 37.7 L, MCV 94.5 H, MCH 33.8 H, MCHC 35.8 H, RDW 11.3 L, Plt Count 93 L, MPV 12.2 H, Neut % (Auto) 61.5, Lymph % (Auto) 22.7, Benson % (Auto) 9.5 H, Eos % (Auto) 5.1, Baso % (Auto) 1.0, Neut # (Auto) 3.8, Lymph # (Auto) 1.4, Benson # (Auto) 0.6, Eos # (Auto) 0.3, Baso # (Auto) 0.1, Sodium 136, Potassium 3.4 L, Chloride 103, Carbon Dioxide 23, Anion Gap 13.4, BUN 6 L, Creatinine 0.80, Estimated Creat Clear 135, Estimated GFR 109, Est GFR ( Amer) 132, Glucose 94, Calcium 9.2, Magnesium 2.0, Total Bilirubin 0.9, AST 186 H D, ALT 142 H, Alkaline Phosphatase 75, Total Protein 6.4, Albumin 3.9, Globulin 2.5, Albumin/Globulin Ratio 1.6, Folate 9.31 I & O for Last 24 hours: Intake & Output 08/15/24 08/16/24 08/17/24 08/18/24 23:59 23:59 23:59 23:59 Intake Total 345 / 345 1255 / 1255 Output Total 0 / 0 Balance 345 / 345 1254 / 1254 Weight 72.631 kg 73.21 kg 74.559 kg Constitutional Constitutional: no acute distress *Routine HEENT Exam Head: Present normocephalic Eye: Present EOMI and PERRL ENT: Present mucous membranes moist *Routine Neck Exam Neck: Present supple; Absent lymphadenopathy *Routine Respiratory Exam Respiratory: Present CTA bilaterally *Routine Cardiovascular Exam Cardiovascular: Present RRR *Routine Abdominal Exam Abdominal: Present soft and normoactive bowel sounds; Absent tenderness *Routine Extremities Exam Extremities: Absent cyanosis, clubbing or edema *Routine Skin Exam Skin: Present warm; Absent rash *Routine Neurological Exam Neurological: Present alert and oriented X3 Results Data Completed and Pending Labs on day of discharge: Labs from last 24 hours 08/18/24 05:30 WBC 6.1 RBC 3.99 L Hgb 13.5 L Hct 37.7 L MCV 94.5 H MCH 33.8 H MCHC 35.8 H RDW 11.3 L Plt Count 93 L MPV 12.2 H Neut % (Auto) 61.5 Lymph % (Auto) 22.7 Benson % (Auto) 9.5 H Eos % (Auto) 5.1 Baso % (Auto) 1.0 Neut # (Auto) 3.8 Lymph # (Auto) 1.4 Benson # (Auto) 0.6 Eos # (Auto) 0.3 Baso # (Auto) 0.1 Sodium 136 Potassium 3.4 L Chloride 103 Carbon Dioxide 23 Anion Gap 13.4 BUN 6 L Creatinine 0.80 Estimated Creat Clear 135 Estimated GFR 109 Est GFR ( Amer) 132 Glucose 94 Calcium 9.2 Magnesium 2.0 Total Bilirubin 0.9 AST 186 H D ALT 142 H Alkaline Phosphatase 75 Total Protein 6.4 Albumin 3.9 Globulin 2.5 Albumin/Globulin Ratio 1.6 Folate 9.31 DS: Diagnosis Discharge Diagnosis (1) Alcohol withdrawal: Status: Acute Code(s): F10.939 - Alcohol use, unspecified with withdrawal, unspecified Qualifiers: Complication of substance-induced condition: uncomplicated Qualified Code(s): F10.930 - Alcohol use, unspecified with withdrawal, uncomplicated Meds Home Medications and Allergies Home Medications ?Medication ?Instructions ?Recorded ?Confirmed ?Type gabapentin 300 mg capsule 600 mg (2 x 300 mg) PO HS 30 days 08/18/24 Rx #60 caps naltrexone 50 mg tablet 50 mg PO DAILY #14 tabs 08/18/24 Rx prednisone 20 mg tablet 40 mg (2 x 20 mg) PO DAILY 4 days 08/18/24 Rx #8 tabs New Prescriptions to Start Prescriptions: gabapentin Bong Ramirez naltrexone Bong Ramirez prednisone Bong Ramirez Allergies Allergy/AdvReac Type Severity Reaction Status Date / Time Penicillins Allergy Rash Verified 08/16/24 17:35 Discharge Plan Disposition Patient Disposition: Home, Self-Care Condition: Fair Discharge Order Discharge Orders: Discharge Order (Routine); Ordered 08/18/24 Ordered By: Bong Ramirez Follow up Plan Follow up with: Jama Barbosa DO [Staff Physician] - 08/24/24 9:00 am (Establish care, alcohol use disorder and insomnia.) Prescriptions/Medication Reconciliation: New prednisone 20 mg Tablet 40 mg PO DAILY 4 Days Qty: 8 0RF naltrexone 50 mg tablet 50 mg PO DAILY Qty: 14 0RF gabapentin 300 mg capsule 600 mg PO HS 30 Days Qty: 60 0RF Rx Instructions: Start with 300mg nightly. You may additional 300mg (for total 600mg) nightly for sleep. Problem Reconciliation Problems Reviewed?: Yes Patient Discharge Instructions Patient Instructions: DI for Drug or Alcohol Withdrawal Print Language: Yoruba Providers Primary Care Provider: Provider,Referral Admit Provider: Bong Ramirez Attending Provider: Bong Ramirez
--- NOTE | 2024-08-18 12:57 | SW/DCPLANNER ---
Per PS patient will discharge from [facility] today and have appointment w/ [facility] today.
--- NOTE | 2024-08-18 13:10 | PEERSUPPORT ---
Peer Support Note Patient Information Patient Information: DOS: 08/18/2024 ? Reason: ETOH/AUD Ps Consult follow up ? Focusing on Plan of Action: ? Pt stated he did not sleep much? last night, from night thayer and uncomfortableness. Once his family left his anxiety was high, and he felt as if he was in senior living. He was able to sleep today once medication was given, and feels rested after. He had no night thayer today when sleeping. He is able to feel when he is doing through withdrawals and aware of what is going on. He said knowing this helps him get through them. Ps shares informing of the process of alcohol use disorder and the awareness of process to recovery that takes time and importance of having support through ongoing care for treatment. ? Ps discusses priorities for his next steps being insurance calls to be made. ? Pt is understanding and agrees for ps to facilitate phone call at bedside. ? Pt makes phone call, finalizing insurance request confirming active and eligible. ? Ps contacts [facility] to initiate intake prior to discharge: Pt to report to [facility] directly following discharge. Ps provided patient handbook for [facility]. ? Pt express gratitude and feels at ease with plan of action, he is understanding of the medications and process of recovery with hope to overcome these challenges to be back to himself, able to work, be the Dad and he knows he can be. ? Desire for In-patient treatment: Not interested at this time: Pt is aware and understands if needed at later time to contact peer support or numbers provided to commit to inpatient. ? Desire for MAT/MOUD: Pt wants to go to [facility]Note 3] for outpatient medication assisted treatment. Pt understands program policy and procedures and services. ? Support System: Father; Active [facility] Kiara; friend active [facility] patient ; Nelson; willing to educate alcohol use disorder and open to attend meetings with him, as well as counseling. Ivelisse-step mother and Sister ? -Potential Barriers: -Insurance for pharmacy not showing active. -lack of Financial security due to not working ? Insurance: Medicaid; [employer] ? Harm reduction: -Connection to for processing and support -Direct report to [facility][Note 3] for MAT -Medication for alcohol use disorder -Education on Alcohol Use Disorder -Insurance approved and active; Medical and pharmacy 08/18/2024 ? Plan of Action: -Refrain from drinking alcohol and or using any substances. -Appointment to [facility][Note 3] 08/18/2024 following discharge -Naltrexone 50 mg once per day to help with cravings and urges -Gabapentin 300 mg ;Assist with alcohol withdrawal ? Pt to establish PCP appointment with Dr. Barbosa/[facility] 08/24/2024 -Follow up phone calls with [facility] peer support. -Reach out to social supports or ps when desired and needed. ?
[2024-08-19 05:08] LABS: HBsAg Screen Negative (Negative); HCV Ab Non Reactive (Non Reactive); Hep A Ab, IGM Negative (Negative); Hep B Core Ab, IgM Negative (Negative)
--- NOTE | 2024-08-22 13:39 | SW/DCPLANNER ---
Phoned patient x2. Patients number has calling restrictions and cant complete the call. Rosey Walter
== END 2024-08-18 13:37 | disposition home or self-care (01) | DRG 897 ==
LOC: ER 15:41 → ICU 17:32 → 2ND 08-17 12:31
PROVIDERS: Physician Assistant; Admitting Provider Student in an Organized Health Care Education/Training Program; Emergency Provider Emergency Medicine; Visit Provider Student in an Organized Health Care Education/Training Program
DX: F10.239 Alcohol dependence with withdrawal, unspecified (principal); K86.0 Alcohol-induced chronic pancreatitis; Y90.6 Blood alcohol level of 120-199 mg/100 ml; F17.210 Nicotine dependence, cigarettes, uncomplicated; Z79.899 Other long term (current) drug therapy; D69.6 Thrombocytopenia, unspecified; K70.10 Alcoholic hepatitis without ascites; Z88.0 Allergy status to penicillin
CPT/HCPCS: 36415; 76705; 80053; 80061; 80074; 80307; 80320; 82607; 82746; 83605; 83690; 83735; 84100; 85025; 85610; 85730; 86803; 93005; 99291; J1650; J2405; J3411; J7030; J7120

== ENCOUNTER 2025-01-14 11:49 | Emergency (ER) | payer MEDICAID, SELFPAY ==
[2025-01-14] VITALS (10 sets, daily range): BP systolic 124–143; BP diastolic 84–107; PULSE 45–94; RESP 11–21; TEMP 36.6–36.9; O2SAT 94–100; BMI 21.8
--- NOTE | 2025-01-14 12:17 | ED_ITS ---
<Statement entered by Charles Sierra MD - 01/14/25 17:39> I was consulted by the VERONICA, and we discussed the complexity of the problems being addressed. I approve the treatment and management plan for this patient's care in the emergency department, thus performing a substantive portion of the medical decision making. Charles Sierra MD Discharge Plan Disposition Patient Disposition: Home, Self-Care Condition: Fair Prescriptions Prescriptions: New chlordiazepoxide HCl 25 mg capsule 25 mg PO Q6H Qty: 11 0RF Rx Instructions: Day 1: take 25 mg (1 cap) every 6 hours Day 2: take 25 mg (1 cap) every 6 hours Day 3: Take 25 mg (1 cap) every 12 hours Day 4: take 25 mg (1 cap) once at night ondansetron 4 mg tablet,disintegrating 4 mg PO Q6H PRN (Reason: nausea and vomiting) Qty: 10 0RF No Action naltrexone 50 mg tablet 50 mg PO DAILY Qty: 14 0RF Referrals Follow up/Referrals: Provider,Referral, [Primary Care Provider, Medical] - See instructions Activity Restrictions/Add. Instructions Additional Instructions/Restrictions: Please return to the emergency department with any worsening signs or symptoms, please refrain from drinking while taking this medication, please follow-up with your outpatient detox center/specialist. Clinical Impressions Clinical Impression: Alcohol abuse, Nausea & vomiting Instructions Patient Instructions: DI for Diarrhea and Traveler's Diarrhea -- Adult, DI for Diarrhea and Traveler's Diarrhea -- Child, DI for Nausea -- Adult, DI for Nausea -- Child Print Language Print Language: Austrian Discharge ED Provider: Charles Sierra General Adult HPI General Chief complaint: Nausea/Vomiting/Diarrhea Stated complaint: alcohol withdrawals Time Seen by Provider: 01/14/25 12:08 Mode of Arrival: Ambulatory Source of Information: Patient Description of Symptoms (Recalled from ER Triage Doc. by RN): drinking 13 shots of fireball x1week trying to stop drinking. vomiting,shaking.last drink thursday History of Present Illness HPI narrative: 34-year-old male presents the emergency department with concerns of alcohol withdrawal, patient tells me that he was clean and sober for around 8 months , had a relapse approximately 5 to 7 days ago, he has been drinking a 6 sleeve of fireball , which is approximately 10 shots, daily, last drink was last night, he admits to nausea, vomiting and poor p.o. intake, some anxiety, no tremors no hallucinations, admits to lower extremity cramping , denies any fever chills chest pain no abdominal pain no constipation no diarrhea no urinary symptomatology, patient is also a current everyday smoker denies any other drug use, other past medical history is consistent with alcohol abuse, thrombocytopenia. Initial triage vitals are unremarkable. Please note that above description of symptoms, in this electronic medical record under categorization of recalled from ER triage doctor by RN are reflective of an initial nursing assessment, however, is not reflective of my full history and physical exam that was personally taken and clarified. Consequentially, this preceding description of symptoms, which may include the patient's categorized chief complaint in the EMR, do not reflect my personal clinical impression, and the ultimate description of history of present illness and patient stated complaints should be deferred to this section of the note. Unless stated otherwise or congruent with this section of the note, additional signs, symptoms, or incongruence should be interpreted as inaccurate with my clinical impression. Onset (ago): day(s) Related Data Previous Rx's ?Medication ?Instructions ?Recorded naltrexone 50 mg tablet 50 mg PO DAILY #14 tabs 07/24 12/16 chlordiazepoxide HCl 25 mg capsule 25 mg PO Q6H #11 ca ps 01/14/25 ondansetron 4 mg disintegrating 4 mg PO Q6H PRN nausea and 01/14/25 tablet vomiting #10 tabs Allergies Allergy/AdvReac Type Severity Reaction Status Date / Time Penicillins Allergy Rash Verified 09/07/24 14:54 [facility] Disclaimer: The information contained in this section may have been updated after the patient was seen, as this information can be updated by other users. 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 (Updated 01/14/25 @ 15:23 by CLIFTON Del Rosario) Candidiasis of mouth Muscle spasm Gastroenteritis Upper respiratory infection Encounter for laboratory testing for COVID-19 virus Viral syndrome Infected dental caries Headache Acute bronchitis Pain in scrotum or testicle Low back pain Alcohol abuse No significant past medical history Social History (Updated 09/07/24 @ 14:55 by Randee Carty) Smoking Status: Never smoker second hand exposure: Yes alcohol intake: former year quit: 2024 current occupational status: unemployed and other Travel in the last 8 weeks?: None marital status: number of children: 3 Have you lived/traveled outside [place] in past 30 days?: No Contact w/someone who lives/traveled outside US past 30 days?: No Exposure to someone with infectious disease in past 14 days?: No Do you have a fever (greater than 100.4 F or 38 C)?: No Have you tested positive for COVID-19?: No Exposed to someone with COVID-19 in past 14 days?: No Do you have a sore throat?: No Do you have a cough?: No Do you have any weakness?: No Do you have any diarrhea?: No Are you experiencing any unusual bleeding?: No Do you have any muscle aches/pain?: No Do you have any abdominal pain?: No Are you experiencing loss of taste or smell?: No Other 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 Have you received the Flu Vaccine for this season: No Have you received the Pneumonia Vaccine: No ROS Obtained: Yes All systems reviewed & no additional complaints except as documented Physical Exam General General appearance: alert, in no apparent distress and anxious Head Head exam: atraumatic and normocephalic Eye Eye exam: Present PERRL and EOMI ENT ENT exam: Present mucous membranes moist Neck Neck exam: Present normal inspection Chest Chest inspection: Present normal inspection and symmetric chest wall rise Respiratory Respiratory exam: Present normal lung sounds bilaterally; Absent respiratory distress, wheezes or stridor Cardiovascular Cardiovascular exam: Present regular rate and normal rhythm Abdominal Exam Abdominal exam: Present soft; Absent tenderness, guarding, rebound or rigidity Extremities Exam Extremities exam: Present normal inspection Neurological Exam Neurological exam: Present alert, oriented X3 and other (Minimal tremor noted in the upper extremities, otherwise moves extremities to command,) Psychiatric Psychiatric exam: Present normal affect and anxious Skin Skin exam: Present warm and dry Medical Decision Making Medical Records Medical records reviewed: Yes I reviewed the patient's medical records. Screening: Per USPSTF and CDC recommendations, given the prevalence of disease in our region, it is our hospital?s policy to screen for HIV and viral Hepatitis for all patients aged 18 and over and those with ongoing risk factors. John Inquiry Pt receiving controlled substance: No John was queried for this patient: No Vital Signs: 01/14/25 11:59 01/14/25 12:00 01/14/25 12:01 Temperature 98.5 F Temperature Source Oral Pulse Rate 87 89 Pulse Rate [Right] 94 H Respiratory Rate 13 18 18 Blood Pressure 132/107 H 143/98 H Blood Pressure [Right Arm] 132/107 H Blood Pressure Mean [Right Arm] 115 02 Sat by Pulse Oximetry 97 98 97 Oxygen Delivery Method Room Air 01/14/25 12:30 01/14/25 13:01 01/14/25 13:30 Temperature Temperature Source Pulse Rate 81 90 81 Pulse Rate [Right] Respiratory Rate 11 L 14 Blood Pressure 142/95 H 137/90 143/91 H Blood Pressure [Right Arm] Blood Pressure Mean [Right Arm] 02 Sat by Pulse Oximetry 94 L 97 95 Oxygen Delivery Method 01/14/25 14:00 01/14/25 14:30 01/14/25 15:00 Temperature Temperature Source Pulse Rate 94 H 45 L 67 Pulse Rate [Right] Respiratory Rate 20 21 18 Blood Pressure 137/86 131/89 124/89 Blood Pressure [Right Arm] Blood Pressure Mean [Right Arm] 02 Sat by Pulse Oximetry 95 100 97 Oxygen Delivery Method Lab Data Lab results reviewed: Yes I reviewed the patient's lab results. Lab Results 01/14/25 12:00: WBC 11.1 H, RBC 5.62, Hgb 17.2, Hct 50.1, MCV 89.1, MCH 30.6, MCHC 34.3, RDW 12.9, Plt Count 290, MPV 10.4, Neut % (Auto) 73.6, Lymph % (Auto) 14.9, [place] % (Auto) 10.3 H, Eos % (Auto) 0.3, Baso % (Auto) 0.6, Neut # (Auto) 8.2 H, Lymph # (Auto) 1.7, [place] # (Auto) 1.2 H, Eos # (Auto) 0.0, Baso # (Auto) 0.1, PT 10.3, INR 0.92, APTT 30.2, Sodium 138, Potassium 4.1, Chloride 96 L, Carbon Dioxide 27, Anion Gap 19.1 H, BUN 10, Creatinine 1.10, Estimated Creat Clear 101, Estimated GFR 76, Est GFR ( Amer) 92, Glucose 104 H, Calcium 10.1, Magnesium 1.8, Total Bilirubin 1.7 H, GGT 36, AST 77 H, ALT 34, Alkaline Phosphatase 123, Total Protein 8.9 H D, Albumin 5.2 H, Globulin 3.7 H, Albumin/Globulin Ratio 1.4, Lipase 157, Plasma/Serum Alcohol < 10 01/14/25 12:31: Urine Opiates Screen Negative, Urine Methadone Screen Negative, Ur Barbituates Screen Negative, Ur Phencyclidine Scrn Negative, Ur Amphetamines Screen Negative, U Benzodiazepines Scrn Negative, Urine Cocaine Screen Negative, U Marijuana (THC) Screen Negative 01/14/25 14:39: Lactate 0.9 01/14/25 14:42: Urine Color Yellow, Urine Appearance Clear, Urine pH 8.5, Ur Specific [employer] 1.010, Urine Protein 2+ A, Urine Glucose (UA) Negative, Urine Ketones 3+, Urine Blood Negative, Urine Nitrate Negative, Urine Bilirubin 2+ A, Urine Urobilinogen 1.0, Ur Leukocyte Esterase Negative, Urine WBC 3-5, Ur Squamous Epith Cells None, Urine Bacteria 3+, Urine Mucus 2+ 01/14/25 12:00 01/14/25 12:00 Orders (Tests/Meds): ED MEDICATIONS Generic Name Dose Route Start Last Admin Trade Name Flores PRN Reason Stop Dose Admin Magnesium Sulfate 2 gm/ 1,015 mls @ 333 mls/hr 01/14/25 12:30 01/14/25 12:38 Thiamine HCl 100 mg/ IV 01/14/25 15:32 333 mls/hr Multivitamins 10 ml/ Lactated ONCE ONE Administration Ringer's Sodium Chloride 10 ml 01/14/25 12:16 Sodium Chloride 0.9% 10ml Vial IV 02/13/25 12:15 NEEDED PRN to Dilute Lorazepam inj Discontinued Medications Generic Name Dose Route Start Last Admin Trade Name Flores PRN Reason Stop Dose Admin Folic Acid 1 mg 01/14/25 12:17 01/14/25 12:37 Folic Acid 1mg Tablet PO 01/14/25 12:18 1 mg ONCE ONE Administration Lorazepam 1 mg 01/14/25 12:23 01/14/25 12:53 Lorazepam 1mg Tablet PO 01/14/25 12:24 1 mg ONCE ONE Administration Ondansetron HCl 4 mg 01/14/25 12:51 01/14/25 12:53 Ondansetron 4mg/2ml Vial IV 01/14/25 12:52 4 mg ONCE ONE Administration ORDERS Category Date Time Status Consult Business Systems Advisor [CONS] Routine Cons 01/14/25 13:35 Active Complete Blood Count Auto Diff Stat Lab 01/14/25 12:00 Completed Comprehensive Metabolic Panel Stat Lab 01/14/25 12:00 Completed Drug Screen,Urine Stat Lab 01/14/25 12:31 Completed Ethanol [Ethyl Alcohol] Stat Lab 01/14/25 12:00 Completed GGT [Gamma Glutamyl Transpeptidase] Stat Lab 01/14/25 12:00 Completed Lactic Acid Stat Lab 01/14/25 14:39 Completed Lipase Stat Lab 01/14/25 12:00 Completed Magnesium Stat Lab 01/14/25 12:00 Completed PT INR [Prothrombin Time INR] Stat Lab 01/14/25 12:00 Completed PTT [Activated Partial Thrombo Time] Stat Lab 01/14/25 12:00 Completed Urinalysis and Microscopic Stat Lab 01/14/25 14:42 Completed Urine Culture Stat Micro 01/14/25 14:42 Received Medical Decision Narrative: 34-year-old male presents to the emergency department with concern for alcohol withdrawal, differential diagnose include but not limited to, electrolyte disturbance, alcohol withdrawal, acute liver failure, delirium tremens, cardiac arrhythmia, ethanol intoxication, beer [place] elicia, hypovolemia, other toxic ingestion, alcoholic ketoacidosis among others. I discussed patient case with attending physician Dr. Sierra Will obtain basic laboratory studies, coagulation studies, UA, UDS lactic acid level, lipase level, will give 1 L LR IV, and rally pack , to include thiamine and folic acid, will give 1 mg p.o. Ativan as needed for alcohol withdrawal symptomatology, obtain EKG, GGT, magnesium level. Leukocytosis 11.1 or on CBC, patient findings of nausea will give 4 mg IV Zofran for nausea, otherwise unremarkable CBC. CMP notable for anion gap elevation at 19.1, AST is elevated at 77, lipase within normal limits, ethyl alcohol level within normal limits. Initial CIWA per nursing staff and myself is 7-9. Coags within normal limit 2+ proteinuria, 2+ bilirubinemia on UA, 3+ ketonuria, negative leukocyte esterase negative nitrites UDS negative Lactic acid level normal. I had a long discussion with the patient and her aunt at the bedside, patient's CIWA has improved, patient has no acute symptomatology at this time, patient states he would like to stop drinking , he has slated follow-up with behavioral health specialist/previous alcohol detox outpatient facility in the upcoming days. Patient would like to be discharged home to self-care I did offer admission to the patient, he denied at this time, we will send the patient home with Librium taper per attending physician, for alcohol withdrawal symptoms as well as antiemetics with 4 mg Zofran. Patient was given very strict ED return precautions. Patient voiced understanding and agreement with current treatment plan/discharge plan. Critical Care Critical Care Time Critical Care Time: No
--- NOTE | 2025-01-14 12:20 | ECG_ITS ---
APPROVED REPORT Exam: Resting ECG HR:78 bpm ECG Measurements Heart Rate 78 AXES MS 129 P 64 QRSd 94 QRS 71 QT 402 T 55 QTc 436 Conclusion SINUS RHYTHM WITH OCCASIONAL SUPRAVENTRICULAR PREMATURE COMPLEXES BORDERLINE ECG UNCONFIRMED REPORT Normal sinus rhythm. No ST elevation or depression. QTc normal at 436 Electronically signed by : ADELA MILLS, 01/14/2025 17:45:23
[2025-01-14 12:35] LABS: Hematocrit 50.1 % (42.0-52.0); Hemoglobin 17.2 g/dL (14.1-18.0); Immature Granulocytes % 0.3 %; Mean Corpuscular HGB Conc 34.3 g/dL (31.8-35.4); Mean Corpuscular Hemoglobin 30.6 pg (27.0-31.2); Mean Corpuscular Volume 89.1 fl (80-94); Nucleated Red Blood Cells % 0 %; Platelet Count 290 K/mm3 (142-424); Red Blood Count 5.62 M/mm3 (4.60-6.20); Red Cell Distribution Width-SD 42.4 fL; White Blood Count 11.1 K/mm3 (4.8-10.8)
[2025-01-14] MEDS: FOLIC ACID 1MG TABLET 1 MG PO (12:37)
[2025-01-14] MEDS: MAGNESIUM SULFATE 2 GM, THIAMINE HCL 100 MG, MVI, ADULT NO.1 WITH VIT K 10 ML in LACTAT... IV (12:38)
[2025-01-14 12:48] LABS: Activated Partial Thrombo Time 30.2 seconds (22.8-30.6)
[2025-01-14] MEDS: ONDANSETRON 4MG/2ML VIAL 4 MG IV (12:53)
[2025-01-14 12:59] LABS: Gamma Glutamyl Transpeptidase 36 U/L (15-73); Lipase 157 U/L (23-300); Magnesium 1.8 mg/dl (1.6-2.3)
[2025-01-14 13:01] LABS: Alanine Aminotransferase 34 U/L (12-78); Albumin Level 5.2 g/dl (3.5-5.0); Albumin/Globulin Ratio 1.4 (1.1-1.8); Alkaline Phosphatase 123 U/L (38-126); Anion Gap 19.1 mEq/L (5-15); Aspartate Amino Transferase 77 U/L (17-59); Bilirubin,Total 1.7 mg/dl (0.2-1.3); Blood Urea Nitrogen 10 mg/dl (9-20); Calcium 10.1 mg/dl (8.4-10.2); Carbon Dioxide 27 mmol/L (22.0-30.0); Chloride 96 mmol/L (98-107); Creatinine Clearance Estimated 101 mL/min (50-200); Creatinine,Serum 1.10 mg/dl (0.66-1.25); Estimated Glomerular Filt Rate 76 ml/min (>60); GFR (African American) 92 ML/MIN (>60); Globulin 3.7 g/dL (1.3-3.2); Glucose 104 mg/dl (74-100); Potassium 4.1 mmoL/L (3.5-5.1); Sodium 138 mmol/L (136-145); Total Protein,Serum 8.9 g/dl (6.3-8.2)
[2025-01-14 14:46] LABS: Microscopic, Urine URINE MICROSCOPIC (MICROSCOPIC)
[2025-01-14 14:47] LABS: INR 0.92 (0.9-1.1); Prothrombin Time 10.3 seconds (10.1-12.5)
[2025-01-14 14:52] LABS: Color,Urine YELLOW (Yellow); Glucose,Urine (UA) Negative (Negative); Ketones,Urine 3+ (Negative); Leukocyte Esterase,Urine Negative (Negative); PH,Urine 8.5 (5.0-8.5); Protein,Urine 2+ (Negative); Specific Gravity, Urine 1.010 (1.005-1.030); Urobilinogen,Urine 1.0 EU/dl (0.2)
[2025-01-14 15:00] LABS: Bilirubin,Urine 2+ (Negative)
[2025-01-14 15:07] LABS: Benzodiazepines Screen,Urine Negative ng/ml (<200)
[2025-01-14 15:08] LABS: Amphetamine/Metha Screen,Urine Negative ng/ml (<1000); Barbiturates Screen,Urine Negative ng/ml (<200)
[2025-01-14 15:09] LABS: Bacteria,Urine 3+ /lpf; Mucus,Urine 2+ /lpf
[2025-01-14 15:10] LABS: Methadone Screen,Urine Negative ng/ml (<300)
[2025-01-14 15:11] LABS: Opiate Screen,Urine Negative ng/ml (<300); Phencyclidine Screen,Urine Negative ng/ml (<25)
--- NOTE | 2025-01-18 14:03 | PEERSUPPORT ---
Peer Support Note Patient Information Patient Information: DOS: 01/16/2025 Pt reported he has not been to [facility] yet, but plans on going once his mind settles. Potential barriers: -No data on phone to make or take calls unless wifi access -Not working at this time -Relationship issues -Not able to see his children daily, who he loves and give him purpose. Harm reduction: -Connection to [facility] peer support -Education on Alcohol use disorder -Treatment referrals/resources Ps discussed the priority of sobriety during times of challenges as well as connection to recovery through programs, meetings, or trusted social friends who are supportive of his recovery. Pt is receptive, being honest and forth coming accepting the support and guidance. Ps encouraged pt to report to [facility] as soon as possible. Ps will follow up with pt.
== END 2025-01-14 15:42 | disposition home or self-care (01) ==
PROVIDERS: Physician Assistant; Emergency Provider Student in an Organized Health Care Education/Training Program
DX: R11.2 Nausea with vomiting, unspecified (principal); F10.10 Alcohol abuse, uncomplicated; K52.9 Noninfective gastroenteritis and colitis, unspecified; F17.200 Nicotine dependence, unspecified, uncomplicated
CPT/HCPCS: 80053; 80307; 80320; 81001; 82977; 83605; 83690; 83735; 85025; 85610; 85730; 87086; 93005; 96365; 96366; 96375; 99285; J2405; J3411; J3475; J7120